=== PATIENT | female | born 1950 | race Caucasian/White ===

== ENCOUNTER 2017-09-12 05:41 | Day surgery (SDC) | payer MEDICARE, OTHER ==
[2017-09-09 11:02] VITALS: BMI 26.6
[2017-09-12] MEDS ORDERED: CEFAZOLIN/Water 2 GM/20 ML SYRINGE ONE (06:26)
[2017-09-12] MEDS ORDERED: Bupivacaine/Epinephrine 0.25% 30 ML VIAL ONE (06:36)
[2017-09-12] MEDS ORDERED: Fentanyl 100 MCG/2 ML VIAL ONE (06:57)
[2017-09-12] MEDS ORDERED: Propofol 500 MG/50 ML VIAL ONE (06:57)
[2017-09-12] MEDS ORDERED: Midazolam HCl 2 mg/2 ml Vial ONE (07:44)
[2017-09-12] MEDS ORDERED: Propofol 200 MG/20 ML VIAL ONE (08:38)
[2017-09-12] MEDS ORDERED: HYDROcodone/Acetaminophen 5/325 mg Tablet ONE (10:08)
--- NOTE | 2017-09-12 12:03 | OP ---
PREOPERATIVE DIAGNOSIS: Advanced breast cancer. SURGEON: Antione Hong M.D. PROCEDURE PERFORMED: Left subclavian MediPort placement. INDICATIONS: A 67-year-old female who has advanced right breast cancer, needs adjuvant chemotherapy . FINDINGS: Left subclavian vein placement. DESCRIPTION OF PROCEDURE: After informed consent was obtained, the patient was taken to the operati ng room and given general mask anesthesia, placed in the Trendelenburg position. Her chest and neck were prepped and draped in the usual fashion. Local anesthesia infiltrated subcutaneously and deep . An introducer needle was inserted in left subclavian with good backflow of venous blood. J-wire threaded easily. Fluoroscopy was used showed good placement of the wire in the superior vena cava. Skin and subcutaneous anesthetized with local anesthesia and a transverse chest wall incision was p erformed. The subcu divided sharply and a pocket was created sharply on pectoralis fascia with elec trocautery. A tunneling device was used to connect the two incisions. The catheter brought through the tunnel. The catheter was then attached to the MediPort and the system flushed with heparinized saline. The MediPort was sutured to the pectoralis fascia with interrupted 2-0 Prolene suture. Th e catheter was cut to size. The peel-away introducer inserted over the wire. The wire removed. Th e catheter inserted through the peel-away introducer and then the peel-away introducer removed. Flu oroscopy again used showed good placement of the catheter in the superior vena cava. The system was accessed with the Delong needle. Good backflow of venous blood, flushed with heparinized saline. S ubcutaneous reapproximated with interrupted 3-0 Vicryl. Skin closed with a running subcuticular 4-0 Rapide. Dermabond applied. The system was accessed with the Delong needle and left accessed for fu ture use, again it was aspirated and flushed with heparinized saline. Sterile bandage applied. The patient tolerated the procedure well and transferred to recovery in good condition. Sponge and nee dle count verified correct x2.
--- NOTE | 2017-09-12 12:21 | RAD ---
CHEST SEMIUPRIGHT PORTABLE: HISTORY: A 67-year-old female status post Mediport placement. FINDINGS: There is a left subclavian catheter and Mediport injection port in place. Heart size is within norm al limits. There is no pneumothorax or pleural effusion. IMPRESSION: Left subclavian catheter and Mediport placement without pneumothorax or other complication. POS: [facility]
== END 2017-09-12 11:40 | disposition home or self-care (01) ==
LOC: SDC 05:41
PROVIDERS: ATTEND Surgery
PROC: 05H633Z Insertion of Infusion Device into Left Subclavian Vein, Percutaneous Approach (ICD-10-PCS; principal; 2017-09-12)
DX: C50.911 Malignant neoplasm of unspecified site of right female breast (principal); Z88.2 Allergy status to sulfonamides; Z88.1 Allergy status to other antibiotic agents; Z98.890 Other specified postprocedural states; Z82.49 Family history of ischemic heart disease and other diseases of the circulatory system
CPT/HCPCS: 36561; 71010; C1788; J1642; J2250; J2704; J3010

== ENCOUNTER 2017-09-15 12:58 | Outpatient (CLI) | payer MEDICARE, OTHER ==
[~2017-09-15 12:58] MED LIST: Gadobenate Dimeglumine 529 MG/1 ML (20ML VIAL) ONE
--- NOTE | 2017-09-15 17:07 | MRI ---
MRI BRAIN WITH AND WITHOUT CONTRAST: Clinical history: Malignant neoplasm of breast. FINDINGS: Ventricular system is normal in size. No midline shift. There are abnormal enhancing intraaxial 1 cm foci involving the superior aspect of the left temporal lobe involving the anterior right parietal lobe. There are punctate areas of increased signal intensity at each anterior pole of the temporal l obes which may be artifactual. There is also punctate hyperintensity of the mid to posterior right t emporal lobe, too small to definitely characterize, identified on sagittal imaging although not conf irmed on axial imaging. This could relate to an early tiny metastases, although 1-2 mm size range do es limit assessment. Continued imaging surveillance would prove useful. There is scattered white mat ter chronic microvascular ischemic disease and superimposed edema from the above described intraaxia l lesions. No hemorrhage. IMPRESSION: Intracranial metastatic lesions as above. Dominant lesion involves the mid aspect of the left tempor al lobe superiorly, at 1 cm in diameter. POS: [facility]
== END 2017-09-15 12:59 | disposition home or self-care (01) ==
LOC: SCSMRI 12:58
PROVIDERS: ATTEND Internal Medicine Hematology & Oncology
DX: C50.111 Malignant neoplasm of central portion of right female breast (principal); C79.31 Secondary malignant neoplasm of brain
CPT/HCPCS: 70553; A9579

== ENCOUNTER 2017-09-24 09:40 | Outpatient (CLI) | payer MEDICARE, OTHER ==
--- NOTE | 2017-09-24 13:11 | CT ---
CT CHEST AND ABDOMEN AND PELVIS: DATE: 09/24/17. COMPARISON: None. HISTORY: Right breast cancer diagnosed 2 weeks ago, chemotherapy began 09/29/17. TECHNIQUE: Serial axial CT imaging is obtained at 5 mm intervals from the thoracic inlet through the pubic symph ysis with intravenous and oral contrast. Coronal reformatted imaging obtained. FINDINGS: There is a large lobulated superior breast mass on the right extending to the skin surface anteriorly and abutting the pectoralis musculature posteriorly, measuring 6.8 x 6.3 cm. Additional irregular h yperdense masses are noted within the breast parenchyma on the right including a lesion on axial imag e 23 laterally measuring 1.9 cm and a probable lesion on image 28 measuring in the 1.9 cm range. Ded icated breast imaging via mammography/ultrasound and MRI would be required for full assessment. There is a mass insinuating between the pectoralis musculature on the right on image 16 measuring 2.9 x 1.6 cm, also related to right breast malignancy. On image 22, there is a small centrally hypodense lesion measuring 7 mm medial to the internal mammar y vasculature on the right suggesting a metastatic internal mammary node on the right. There are irregular centrally hypodense masses in the axilla on the right, consistent with prominent right axillary metastatic adenopathy, measuring up to 4.4 cm. At least 4 such abnormal right axillar y lymph nodes are present. There is a left-sided Port-A-Cath. No discrete adenopathy is seen in the left axillary region. No m ediastinal or hilar adenopathy is seen. There is atherosclerotic calcification in the aorta arch and the descending thoracic aorta. There is no pneumothorax evident on either side. No discrete pulmonary nodule/mass lesion identified within the lung parenchyma on either side. Osseous structures of the chest demonstrate no discrete lytic or blastic bone lesion. CT of the abdomen and pelvis demonstrates no free intraperitoneal air or fluid. There are extensive irregular hypoenhancing mass lesions throughout the right and the left lobe of th e liver, most consistent with extensive intrahepatic necrotic metastatic disease. A lesion within th e left lobe measures up to 12 cm in transverse dimension and the lesion within the inferior lateral r ight lower lobe measures up to 9 cm. The spleen, pancreas, and adrenal glands appear grossly unremar kable. The gallbladder is contracted and contains 2 calculi. Trace nonspecific free fluid is seen in the pelvic cul-de-sac. The uterus is lobulated and contains masses with coarse calcification suggesting a fibroid uterus. There is diverticulosis of the descending colon. No evidence for diverticulitis. No evidence for guilherme wel obstruction. There is trace free fluid in the right paracolic gutter on axial image 91. Portions of the peripheral hepatic contour are irregular/retracted, likely on the basis of metastatic lesions throughout the hepatic parenchyma. There is fluid density along the anterior aspect of the left lobe of the liver, best seen on image 45 , which may signify minimal fluid adjacent to the liver or small volume subcapsular fluid. There is minimal fluid and stranding anterior to the inferior aspect of the right lobe of the liver laterally on image 71. There is extensive atherosclerotic calcification of the abdominal aorta and its branches. No pelvic adenopathy. No mesenteric or retroperitoneal adenopathy. No discrete lytic or blastic bone lesion identified within the osseous structures of the abdomen or p silvia. IMPRESSION: 1. Large mass in the right breast consistent with breast cancer. Additional right breast lesions ar e noted, suspicious for multicentric disease. There is evidence of metastatic disease which includes abnormal necrotic-appearing intramammary node on right, multiple irregular necrotic enlarged right a xillary nodes, and extensive hepatic metastatic disease. There is small volume fluid noted anterior to the right lobe of the liver, the left lobe of the liver, and the right paracolic gutter, and withi n the pelvis. Given the degree of metastatic disease seen on this examination, this could potentiall y represent early changes of peritoneal carcinomatosis. Thus, close followup imaging is suggested. 2. Cholelithiasis. Results called to Dr. Britt at approximately 11:00 a.m. 09/24/17. CODE CR POS: [facility]
--- NOTE | 2017-09-24 15:15 | NM ---
EXAM: WHOLE BODY BONE SCAN: HISTORY: Malignant/metastatic right breast cancer. COMPARISON: None. TECHNIQUE: The patient was administered 31.40 mCi of Technetium 99 MDP intravenously. After appropriate delay, whole body imaging is performed. FINDINGS: There is physiologic distribution of radiotracer. There is uptake in both shoulders and the right wr ist due to degenerative change. There is no scintigraphic evidence of osseous metastases. IMPRESSION: No scintigraphic evidence of osseous metastasis. POS: [facility]
== END 2017-09-24 09:41 | disposition home or self-care (01) ==
LOC: CT 09:40
PROVIDERS: ATTEND Internal Medicine Hematology & Oncology
DX: C79.31 Secondary malignant neoplasm of brain (principal); C50.111 Malignant neoplasm of central portion of right female breast; C78.7 Secondary malignant neoplasm of liver and intrahepatic bile duct; K80.20 Calculus of gallbladder without cholecystitis without obstruction; I88.9 Nonspecific lymphadenitis, unspecified
CPT/HCPCS: 71260; 74177; 78306; A9503

== ENCOUNTER 2017-11-19 13:12 | Outpatient (CLI) | payer MEDICARE, OTHER ==
--- NOTE | 2017-11-19 15:00 | MRI ---
BRAIN MRI WITH AND WITHOUT CONTRAST: Indication: History of breast malignancy, metastatic disease, and prior radiation therapy. Comparison: 09-15-17 FINDINGS: There has been interval involution of prior metastatic lesions with small foci of residual hyperinten sity located within the mid left temporal lobe, and at the anterior right parietal cortex. No evidenc e of acute infarction or intracranial hemorrhage. Ventricular size is stable. There are multifocal si gnal abnormalities of the brain parenchyma bilaterally indicating mild to moderate degree of scattere d gliosis. Skull base flow voids are preserved. [place] intraocular lens is absent. IMPRESSION: Interval decrease in size of metastatic lesions with mild residual T1 hyperintensity on post contrast imaging within the mid left temporal lobe and anterior right parietal lobe. POS: [facility]
[2017-11-19] MEDS ORDERED: Gadobenate Dimeglumine 529 MG/1 ML (20ML VIAL) ONE (16:05)
== END 2017-11-19 13:13 | disposition home or self-care (01) ==
LOC: MRI 13:12
PROVIDERS: ATTEND Radiology Radiation Oncology
DX: C79.31 Secondary malignant neoplasm of brain (principal)
CPT/HCPCS: 70553; A9579

== ENCOUNTER 2017-11-21 09:36 | Outpatient (CLI) | payer MEDICARE, OTHER ==
--- NOTE | 2017-11-21 12:26 | CT ---
CT THORAX WITH IV THORAX CT ABDOMEN AND PELVIS WITH IV CONTRAST: DATE: 11/21/17. HISTORY: Patient with breast cancer and metastatic disease to the liver. The patient is currently on chemothe rapy treatment. COMPARISON: 09/24/17. FINDINGS: There has been interval decrease in the large heterogeneous lobulated mass in the medial aspect of th e right breast. This large lobulated mass previously measured 6.8 cm transverse x 6.3 cm AP and now measures 3.4 cm transverse x 2.2 cm AP. There is associated skin thickening anterior to this mass. The additional masses in the right breast and right axillary region as well as in a subpectoral locat ion which may have been related to enlarged lymph nodes or subtle breast lesions are not well seen on this examination. No enlarged axillary lymph nodes are seen on the right on today's examination. There is no mediastinal or hilar lymphadenopathy. A left subclavian MediPort catheter remains in place. No pulmonary nodule or mass is seen in the lungs bilaterally. Vascular calcifications are seen in the thoracic aorta and involving the coronary arteries. There is a tiny pericardial effusion. CT ABDOMEN AND PELVIS: Again noted are multiple hypodense hepatic masses, but the overall volume of these masses related to metastatic lesions in the liver have decreased in size. Large metastatic hypodense lesion in the lef t hepatic lobe previously measured 11.8 cm transverse x 9.1 cm AP and now measures 10.8 cm transverse x 6.5 cm AP with the previously measured mass in the right hepatic lobe previously measuring 8.7 cm in maximal AP dimensions and now measures approximately 6.3 cm. Additional hypodense lesions are see n in the liver also smaller in size. No new hepatic lesions are seen. The spleen, pancreas, bilateral adrenal glands, kidneys, opacified small bowel, and urinary bladder h ave a normal CT appearance. Again noted are calcified uterine fibroids with lobulated appearance of the uterus. Colonic diverticulosis is present. Vascular calcifications are seen in the abdominal aorta and iliac arteries. No lymphadenopathy is visualized in the abdomen or pelvis. No lytic or sclerotic osseous lesions are identified. IMPRESSION: 1. Interval decrease in size of the large right breast mass as well as interval decrease in size and essentially resolution of the previously noted satellite masses in the right breast and resolution o f the right axillary and subpectoral lymphadenopathy. 2. Interval decrease in volume of the multiple metastatic hypodense lesions seen throughout each lob e of the liver. 3. No evidence of lymphadenopathy within the chest, abdomen, or pelvis. 4. Cholelithiasis. 5. Colonic diverticulosis. 6. Uterine fibroids. 7. Previously seen fluid in the abdomen and pelvis has resolved. POS: [facility]
[2017-11-21] MEDS ORDERED: Iopamidol 370 76% 100 ML VIAL ONE (16:40)
== END 2017-11-21 09:37 | disposition home or self-care (01) ==
LOC: CT 09:36
PROVIDERS: ATTEND Internal Medicine Hematology & Oncology
DX: C50.919 Malignant neoplasm of unspecified site of unspecified female breast (principal); K80.20 Calculus of gallbladder without cholecystitis without obstruction; K57.30 Diverticulosis of large intestine without perforation or abscess without bleeding; D25.9 Leiomyoma of uterus, unspecified; K76.9 Liver disease, unspecified
CPT/HCPCS: 36415; 71260; 74177; 82565

== ENCOUNTER 2018-01-20 09:12 | Outpatient (CLI) | payer MEDICARE, OTHER | END 2018-01-20 09:13 | disposition home or self-care (01) | LOC: BICULT 09:12 | PROVIDERS: ATTEND Internal Medicine Hematology & Oncology | DX: C50.111 Malignant neoplasm of central portion of right female breast (principal); N63.20 Unspecified lump in the left breast, unspecified quadrant; T82.868D Thrombosis due to vascular prosthetic devices, implants and grafts, subsequent encounter | CPT/HCPCS: 76641; 78815; A9552 ==

== ENCOUNTER 2018-01-22 15:00 | Inpatient (IN) | payer MEDICARE, OTHER ==
[2018-01-22 15:22] VITALS: BMI 26.6
[2018-01-29] MEDS ORDERED: CEFAZOLIN/Water 2 GM/20 ML SYRINGE ONE (07:59)
[2018-01-29] MEDS ORDERED: Midazolam HCl 2 mg/2 ml Vial ONE (09:16)
[2018-01-29] MEDS ORDERED: HYDROmorphone 0.5 MG/0.5 ML SYRINGE ONE ×3 (09:17→12:35)
[2018-01-29] MEDS ORDERED: Fentanyl 100 MCG/2 ML VIAL ONE (09:17)
[2018-01-29] MEDS ORDERED: Promethazine HCl 25 MG/ML VIAL SLOW IVP PRN (11:07)
[2018-01-29] MEDS ORDERED: Ondansetron HCl/PF 4 MG/2 ML Vial IVP PRN ×2 (11:07→11:39)
[2018-01-29] MEDS ORDERED: Promethazine HCl 25 MG/ML VIAL IM PRN ×2 (11:07→11:39)
[2018-01-29] MEDS ORDERED: Meperidine HCl/PF 25 MG/ML VIAL SLOW IVP PRN (11:07)
[2018-01-29] MEDS ORDERED: Dextrose 50% Abboject 50 ML SYRINGE SLOW IVP PRN (11:39)
[2018-01-29] MEDS ORDERED: Dextrose 5% in Water 1,000 ML IV PRN (11:39)
[2018-01-29] MEDS ORDERED: HYDROcodone/Acetaminophen 10/325 mg Tablet PO PRN (11:39)
[2018-01-29] MEDS ORDERED: hydrALAZINE 20 MG/ML VIAL SLOW IVP PRN (11:39)
[2018-01-29] MEDS ORDERED: Morphine 4 MG/ML VIAL SLOW IVP PRN ×2 (11:39)
[2018-01-29] MEDS ORDERED: Morphine 4 MG/ML VIAL ONE (12:18)
[2018-01-29] MEDS: D5 1/2 NS w/20 mEq KCL 1,000 ML IV SCH (13:32)
[2018-01-29] MEDS ORDERED: ePHEDrine/0.9% NaCl/PF SYRINGE 50 mg/10 ml ONE (13:45)
[2018-01-29] MEDS ORDERED: Propofol 200 MG/20 ML VIAL ONE (13:45)
[2018-01-29] MEDS ORDERED: Ondansetron HCl/PF 4 MG/2 ML Vial ONE (13:45)
[2018-01-29] MEDS ORDERED: Glycopyrrolate 0.2 MG/ML 5 ML SYRINGE ONE (13:45)
[2018-01-29] MEDS ORDERED: Lidocaine 1% PF 5 ML VIAL ONE (13:45)
[2018-01-29] MEDS ORDERED: Ketorolac Tromethamine 30 MG/ML VIAL ONE (13:45)
[2018-01-29] MEDS ORDERED: Dexamethasone 20 MG/5 ML VIAL ONE (13:45)
--- NOTE | 2018-01-29 14:27 | OP ---
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 Also, she has several left breast masses on mammogram PROCEDURE PERFORMED: Bilateral total mastectomy. INDICATIONS: This is a 67-year-old female who had an advanced eroding right breast cancer that was t reated with neoadjuvant therapy, both radiation and chemo with good response. She did have brain met s that also had good response. FINDINGS: There was quite a bit of radiation change on the right side. I had to adjust the incision on the right side in order to get the tumor area as well as the nipple areola. PROCEDURE IN DETAIL: After informed consent was obtained, the patient was taken to the operating lakhwinder m, given general endotracheal anesthesia, placed in the supine position. Started with the left side. An elliptical incision was performed sharply using the plasma blade. A plane was developed between subcutaneous tissue and breast tissue all the way to the clavicle. I had to dissect out the MediPor t leaving it in place, then inferiorly developed same plane between subcutaneous tissue and breast ti ssue all the way down to the rectus muscle. Then the specimen was taken off the pectoralis muscle to include the pectoralis fascia with the plasma blade. It was marked with a suture superior, sent to pathology for further analysis. A lymph node which was a little larger than anticipated was found. This was also dissected out and sent with the specimen from the left axilla. Hemostasis achieved uti lizing the plasma blade as well as 3-0 Vicryl ties. The wound was thoroughly irrigated. Irrigation fluid removed. The subcutaneous reapproximated with interrupted 3-0 Vicryl. Two drains were placed and brought out through separate stab wounds. The skin closed with a running subcuticular 4-0 Rapide . Steri-Strips applied. I then moved to the right side. An oblique elliptical incision had to be p erformed in order to get the tumor bed as well as the nipple areola. Subcu divided sharply and a katlin ne developed utilizing the plasma blade superior to the level of clavicle, inferior to the level of t he rectus, medially to the sternum, and laterally to the latissimus. Then this was taken off the pec toralis to include the fascia with the plasma blade. Hemostasis achieved with the plasma blade as we ll as interrupted 3-0 Vicryl sutures. The wound thoroughly irrigated. Two drains were placed and rodriguez bcu reapproximated with interrupted 3-0 Vicryl. Skin closed with a running subcuticular 4-0 Rapide. Steri-Strips applied. Sterile bandage applied. The patient tolerated the procedure well and was tr ansferred to recovery in good condition. Sponge and needle count verified correct x2.
[2018-01-29] MEDS: Famotidine 20 MG TAB PO SCH (22:37)
[2018-01-29] MEDS: CEFAZOLIN/Water 2 GM/20 ML SYRINGE SLOW IVP SCH (22:38)
[2018-01-30 05:39] LABS: #Lymphocytes 1.6 thou/uL (1.20-3.40); #Monocytes 0.7 thou/uL (0.11-0.59); #Neutrophils 10.4 thou/uL (1.40-6.50); %Basophils 0.2 % (0.0-1.0); %Eosinophils 0.2 % (0.0-10.0); %Lymphocytes 12.3 % (21.0-51.0); %Monocytes 5.7 % (0.0-10.0); %Neutrophils 81.7 % (42.0-75.0); Hemoglobin 8.3 g/dL (12.0-16.0); Mean Corpuscular HGB CONC 32.3 g/dL (32.0-36.0); Mean Corpuscular Hemoglobin 28.5 pg (27.0-31.0); Mean Corpuscular Volume 88.4 fl (81.0-99.0); Mean Platelet Volume 8.1 fL (7.4-10.4); Platelet Count 251 thou/uL (130-400); RBC Distribution Width 15.4 % (11.5-14.5); Red Blood Cell (RBC) Count 2.92 mill/uL (4.20-5.40); White Blood Cell (WBC) Count 12.7 thou/uL (4.8-10.8)
[2018-01-30] MEDS: HYDROcodone/Acetaminophen 10/325 mg Tablet PO PRN ×2 (05:51→12:23)
[2018-01-30] MEDS: CEFAZOLIN/Water 2 GM/20 ML SYRINGE SLOW IVP SCH ×2 (05:52→13:42)
[2018-01-30] MEDS: D5 1/2 NS w/20 mEq KCL 1,000 ML IV SCH (05:52)
[2018-01-30 06:06] LABS: Anion Gap 10 mmol/L (10-20); BUN (Urea Nitrogen) 12 mg/dL (9.8-20.1); Calc. Creatinine Clearance 89 mL/min (70-130); Calcium 8.4 mg/dL (7.8-10.44); Carbon Dioxide 23 mmol/L (23-31); Chloride 107 mmol/L (98-107); Estimated GFR-MDRD 82; Glucose 120 mg/dL (80-115)
[2018-01-30 06:16] LABS: Sodium 136 mmol/L (136-145)
[2018-01-30] MEDS ORDERED: Enoxaparin Sodium 40 MG/0.4 ML SYRINGE SC SCH (09:00)
[2018-01-30 09:09] LABS: #Eosinphils 0.1 thou/uL (0.0-0.7); #Monocytes 0.6 thou/uL (0.11-0.59); #Neutrophils 9.9 thou/uL (1.40-6.50); %Basophils 0.2 % (0.0-1.0); %Eosinophils 0.4 % (0.0-10.0); %Lymphocytes 15.6 % (21.0-51.0); %Monocytes 4.9 % (0.0-10.0); %Neutrophils 78.8 % (42.0-75.0); Hemoglobin 8.4 g/dL (12.0-16.0); Mean Corpuscular HGB CONC 33.2 g/dL (32.0-36.0); Mean Corpuscular Hemoglobin 29.2 pg (27.0-31.0); Mean Corpuscular Volume 88.1 fl (81.0-99.0); Mean Platelet Volume 8.2 fL (7.4-10.4); Platelet Count 240 thou/uL (130-400); RBC Distribution Width 15.4 % (11.5-14.5); Red Blood Cell (RBC) Count 2.87 mill/uL (4.20-5.40); White Blood Cell (WBC) Count 12.5 thou/uL (4.8-10.8)
[2018-01-30] MEDS: Famotidine 20 MG TAB PO SCH (09:23)
[2018-01-30 11:40] VITALS: BP 147/74; TEMP 98.9
== END 2018-01-30 14:38 | disposition home or self-care (01) | DRG 582 ==
LOC: SURG A 01-29 06:49
PROVIDERS: ADMIT Surgery; ATTEND Surgery
PROC: 0HTV0ZZ Resection of Bilateral Breast, Open Approach (ICD-10-PCS; principal; 2018-01-29)
DX: C50.919 Malignant neoplasm of unspecified site of unspecified female breast (principal); C79.31 Secondary malignant neoplasm of brain; C50.111 Malignant neoplasm of central portion of right female breast; C50.911 Malignant neoplasm of unspecified site of right female breast; N63.0 Unspecified lump in unspecified breast; I10 Essential (primary) hypertension; I08.1 Rheumatic disorders of both mitral and tricuspid valves; Z79.899 Other long term (current) drug therapy
CPT/HCPCS: 36415; 80048; 80053; 82248; 83615; 84100; 84550; 85025; 93306; J0131; J0360; J1100; J1170; J1885; J2001; J2250; J2270; J2405; J2550; J2704; J3010

== ENCOUNTER 2018-01-22 15:02 | Outpatient (CLI) | payer MEDICARE, OTHER ==
[2018-01-22 16:55] LABS: #Basophils 0.1 thou/uL (0.0-0.2); #Eosinphils 0.2 thou/uL (0.0-0.7); #Lymphocytes 1.9 thou/uL (1.20-3.40); #Monocytes 0.9 thou/uL (0.11-0.59); %Basophils 0.9 % (0.0-1.0); %Eosinophils 2.1 % (0.0-10.0); %Monocytes 10.7 % (0.0-10.0); %Neutrophils 62.3 % (42.0-75.0); Hemoglobin 11.5 g/dL (12.0-16.0); Mean Corpuscular Hemoglobin 28.8 pg (27.0-31.0); Mean Corpuscular Volume 87.4 fl (81.0-99.0); Mean Platelet Volume 8.3 fL (7.4-10.4); Platelet Count 287 thou/uL (130-400); RBC Distribution Width 15.2 % (11.5-14.5)
[2018-01-22 17:16] LABS: ALT (SGPT) 16 U/L (8-55); AST (SGOT) 20 U/L (5-34); Albumin 4.1 g/dL (3.4-4.8); Alkaline Phosphatase 82 U/L (40-150); Anion Gap 16 mmol/L (10-20); BUN (Urea Nitrogen) 13 mg/dL (9.8-20.1); Bilirubin, Total 0.4 mg/dL (0.2-1.2); Calc. Creatinine Clearance 0 mL/min (70-130); Calcium 9.5 mg/dL (7.8-10.44); Carbon Dioxide 20 mmol/L (23-31); Chloride 107 mmol/L (98-107); Estimated GFR-MDRD 81; Globulin 3.1 g/dL (2.4-3.5); Glucose 76 mg/dL (80-115); Potassium 3.5 mmol/L (3.5-5.1); Protein, Total 7.2 g/dL (6.0-8.3); Sodium 139 mmol/L (136-145)
--- NOTE | 2018-01-24 18:36 | EKG ---
Test Reason : Blood Pressure : / mmHG Vent. Rate : 059 BPM Atrial Rate : 059 BPM P-R Int : 158 ms QRS Dur : 094 ms QT Int : 420 ms P-R-T Axes : 046 018 046 degrees QTc Int : 415 ms Sinus bradycardia with sinus arrhythmia Incomplete right bundle branch block Cannot rule out Anterior infarct (cited on or before 09-SEP-2017) Abnormal ECG When compared with ECG of 09-SEP-2017 11:09, Vent. rate has decreased BY 29 BPM Incomplete right bundle branch block is now Present Criteria for Inferior infarct are no longer Present Questionable change in initial forces of Anteroseptal leads Confirmed by JESSE HILL, DR. Martinez ([id number]) on 01/24/2018 6:35:52 PM Referred By: MATEO Confirmed By:DR. Michelle MOLINA MD
== END 2018-01-22 15:03 | disposition home or self-care (01) ==
LOC: LABBT 15:02
PROVIDERS: ATTEND Surgery
DX: Z01.818 Encounter for other preprocedural examination (principal); C50.911 Malignant neoplasm of unspecified site of right female breast; N63.20 Unspecified lump in the left breast, unspecified quadrant; I49.9 Cardiac arrhythmia, unspecified; I45.10 Unspecified right bundle-branch block; R94.31 Abnormal electrocardiogram [ECG] [EKG]
CPT/HCPCS: 80053; 85025; 93005; 93010

== ENCOUNTER 2018-01-27 13:01 | Outpatient (CLI) | payer MEDICARE, OTHER | END 2018-01-27 13:02 | disposition home or self-care (01) | LOC: ULT 13:01 | PROVIDERS: ATTEND Internal Medicine Hematology & Oncology | DX: Z51.11 Encounter for antineoplastic chemotherapy (principal); C50.111 Malignant neoplasm of central portion of right female breast; I08.1 Rheumatic disorders of both mitral and tricuspid valves; Z79.899 Other long term (current) drug therapy | CPT/HCPCS: 93306 ==

== ENCOUNTER 2018-02-19 09:18 | Outpatient (CLI) | payer MEDICARE, OTHER ==
[2018-02-19] MEDS ORDERED: Gadobenate Dimeglumine 529 MG/1 ML (20ML VIAL) ONE (11:40)
--- NOTE | 2018-02-19 12:57 | MRI ---
BRAIN MRI WITH AND WITHOUT CONTRAST: COMPARISON: 11/19/17. HISTORY: Status post radial surgery. Breast cancer with brain metastases. TECHNIQUE: A brain MRI is performed with and without intravenous Gadolinium administration. Multisequential, mu ltiplanar imaging is performed. FINDINGS: No hemorrhage on the axial gradient echo sequence. Central arterial flow voids are maintained. Absent restricted diffusion. Redemonstration of multifocal T2 and FLAIR hyperintensities. The overall degree of distribution has not changed. Stable configuration of the ventricular system. Cortical gurrola-white matter differentia tion is preserved. Adequate aeration of the mastoid air cells. There intimal development of enhancing foci in the left frontal lobe measuring 2-3 mm. Interval development of an enhancing focus in the left centrum semiov margarita, measuring 2 mm. Interval development of enhancing focus in the right centrum semiovale measurin g 2 mm. Interval increase in size of an enhancing focus involving the right frontal lobe, along the olfactory gyrus measuring 4 mm. The lesion is much better defined on the current examination. Inter eric development of a 3 mm enhancing focus in the right temporal lobe. . New lesion in medial left oc cipital lobe measuring approximately 2 mm is also noted. Interval development of enhancing foci in the left and right cerebellar hemispheres. These foci jennifer ure 2-3 mm. IMPRESSION: Interval progression of disease. Multifocal new subcentimeter enhancing foci are noted in the infrat entorial and supratentorial brain. POS: [facility]
== END 2018-02-19 09:19 | disposition home or self-care (01) ==
LOC: MRI 09:18
PROVIDERS: ATTEND Radiology Radiation Oncology
DX: C50.919 Malignant neoplasm of unspecified site of unspecified female breast (principal); C79.31 Secondary malignant neoplasm of brain
CPT/HCPCS: 70553; A9579

== ENCOUNTER 2018-05-13 10:15 | Outpatient (CLI) | payer MEDICARE, OTHER ==
[2018-05-13] MEDS ORDERED: Gadobenate Dimeglumine 529 MG/1 ML (20ML VIAL) ONE (13:21)
--- NOTE | 2018-05-13 14:15 | MRI ---
PRE AND POST CONTRAST ENHANCED MRI BRAIN: 05/13/2018 HISTORY: The patient has a history of breast cancer with brain metastases. COMPARISON: 02/19/2018 TECHNIQUE: Multiplanar, multisequence pre and post contrast enhanced MRI brain obtained. FINDINGS: Images demonstrate no significant evidence of diffusion restriction. Deep white matter ischemic change is seen. No evidence of abnormally enhancing intracranial masses or lesions seen. Numerous supratentorial and infratentorial multiple bilateral brain metastatic lesions are no longer visible. No evidence of ab normal areas of intracranial enhancement seen. No other acute intracranial masses or lesions seen. There does appear to be newly developed fluid in the left mastoid air cells. This was not present on the patient's previous comparison exam. IMPRESSION: 1. The extensive metastatic disease noted previously is no longer visible. 2. Multiple subcentimeter brain metastatic lesions no longer visible on MRI. 3. Newly developed area of fluid in the left mastoid air cells. POS: [facility]
== END 2018-05-13 10:16 | disposition home or self-care (01) ==
LOC: BICMRI 10:15 → MRI 10:16
PROVIDERS: ATTEND Radiology Radiation Oncology
DX: C79.31 Secondary malignant neoplasm of brain (principal); C50.919 Malignant neoplasm of unspecified site of unspecified female breast; H74.8X2 Other specified disorders of left middle ear and mastoid
CPT/HCPCS: 70553; A9579

== ENCOUNTER 2018-05-25 10:10 | Outpatient (CLI) | payer MEDICARE, OTHER | END 2018-05-25 10:11 | disposition home or self-care (01) | LOC: ULT 10:10 | PROVIDERS: ATTEND Internal Medicine Hematology & Oncology | DX: C50.919 Malignant neoplasm of unspecified site of unspecified female breast (principal); I08.1 Rheumatic disorders of both mitral and tricuspid valves; Z79.899 Other long term (current) drug therapy | CPT/HCPCS: 93306 ==

== ENCOUNTER 2018-06-19 09:55 | Outpatient (CLI) | payer MEDICARE, OTHER ==
--- NOTE | 2018-06-19 13:05 | PET ---
PET CT: HISTORY: 68-year-old female with right breast cancer with liver mets. Last chemotherapy was 06/01/18. TECHNIQUE: PET scanning with CT attenuation correction was performed from the base of the brain through the prox imal thighs following the intravenous administration of 11 mCi [id number]. Imaging was performed after a n uptake interval of 48 minutes. COMPARISON: PET CT of 01/20/18. FINDINGS: Multiple new hypermetabolic lesions are seen in the liver with a maximum SUV of 11. No anjelica hypermetabolism is seen in the neck, chest, abdomen, pelvis, or inguinal regions. No hyperme tabolic pulmonary nodules, adrenal, or skeletal lesions are seen. There is physiologic activity in the GI and tracts, and the visualized portions of the brain. The CT scan used for attenuation correction demonstrates no evidence of pleural effusions or ascites. Cholelithiasis and calcified uterine fibroids are again seen. IMPRESSION: Interval development of hepatic metastases since 01/20/18. POS: [facility]
== END 2018-06-19 09:56 | disposition home or self-care (01) ==
LOC: PET 09:55
PROVIDERS: ATTEND Internal Medicine Hematology & Oncology
DX: C50.919 Malignant neoplasm of unspecified site of unspecified female breast (principal); C78.7 Secondary malignant neoplasm of liver and intrahepatic bile duct; C79.31 Secondary malignant neoplasm of brain
CPT/HCPCS: 78815; A9552

== ENCOUNTER 2018-06-26 08:00 | Outpatient (CLI) | payer MEDICARE, OTHER ==
--- NOTE | 2018-06-26 10:43 | MRI ---
MRI ABDOMEN WITH AND WITHOUT CONTRAST: HISTORY: New hepatic metastatic disease seen on a recent PET CT. COMPARISON: PET CT from 06/19/2018. Multiple prior chest, abdomen, and pelvis CT examinations. PET CT from 01/20/2018. FINDINGS: Corresponding to the recent PET CT are numerous hepatic metastases. This surrounds an area of centra l necrosis between the right and left lobes of the liver, which correspond to areas of necrotic tumor . These areas of central necrosis were photopenic on the prior examinations and likely did not harbo r an active tumor. There is an index lesion of hepatic segment 3, abutting the capsule, measuring up to 3.7 cm in size, on axial image 20. The index lesion of hepatic segment 5 measures up to 3.1 cm in size, on axial antonia ge 25. These masses have enhancement with diffusion restriction. The portal vein has patent antegrade flow. No hydronephrosis. No significant pericardial effusion. No retroperitoneal or periaortic adenopathy. Periaortic contou r is normal. No significant intrahepatic or extrahepatic biliary dilatation. The pancreatic duct is normal. Background marrow signal is normal. IMPRESSION: 1. Extensive hepatic metastatic disease surrounding areas of necrosis. This suggests tumor recurren ce around the areas of necrotic treated tumor. 2. Index lesions, as above. This corresponds to recent PET CT findings. POS: [facility]
[2018-06-26] MEDS ORDERED: Gadobenate Dimeglumine 529 MG/1 ML (20ML VIAL) ONE (13:38)
== END 2018-06-26 08:01 | disposition home or self-care (01) ==
LOC: MRI 08:00
PROVIDERS: ATTEND Internal Medicine Hematology & Oncology
DX: K76.9 Liver disease, unspecified (principal); C50.111 Malignant neoplasm of central portion of right female breast; C22.9 Malignant neoplasm of liver, not specified as primary or secondary
CPT/HCPCS: 74183; A9579

== ENCOUNTER 2018-08-19 11:05 | Outpatient (CLI) | payer MEDICARE, OTHER ==
--- NOTE | 2018-08-19 13:58 | MRI ---
BRAIN MRI WITH AND WITHOUT CONTRAST: INDICATIONS: Breast cancer with history of metastatic disease. COMPARISON: 05/13/2018 FINDINGS: There is age appropriate size of the ventricular system. No acute territorial infarction, mass effec t, or midline shift. There is a punctate 5mm focus of enhancement within the left cerebellar hemisph ere. Skull base flow voids are maintained. There is left mastoid effusion. Absence of [place] intra ocular lenses is demonstrate. There has been marked progression of bilateral cerebral hemisphere white matter signal abnormality. IMPRESSION: 1. Punctate focus of enhancement within the left cerebellar hemisphere. New metastatic lesion. 2. 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 POS: [facility]
== END 2018-08-19 11:06 | disposition home or self-care (01) ==
LOC: MRI 11:05
PROVIDERS: ATTEND Radiology Radiation Oncology
DX: C79.31 Secondary malignant neoplasm of brain (principal); C50.919 Malignant neoplasm of unspecified site of unspecified female breast; G93.49 Other encephalopathy
CPT/HCPCS: 70553

== ENCOUNTER 2018-09-15 11:53 | Outpatient (CLI) | payer MEDICARE, OTHER ==
--- NOTE | 2018-09-16 10:28 | PET ---
PET CT: HISTORY: A 68-year-old female with right breast cancer and liver mets. Last chemotherapy was on 09/08/2018. TECHNIQUE: PET scan with CT attenuation correction was performed from the base of the brain through the proximal thighs following the intravenous administration of 12.3 mCi [id number] in the left antec ubital fossa. Imaging is performed after an uptake interval of 58 minutes. COMPARISON: PET CT dated 06/19/2018. FINDINGS: There has been interval reduction in number of hypermetabolic lesions in the liver with residual hype rmetabolic lesions in the median and lateral segments of the liver with SUVs of 6.2 and 5.5 respectiv vidya. No anjelica hypermetabolism is noted in the neck, chest, abdomen, pelvis, or inguinal regions. No hyper metabolic pulmonary nodules, adrenal, or skeletal lesions are seen. There is physiologic activity in the GI and tracts and the visualized portions of the brain. The CT scan used for attenuation correction demonstrates no evidence of pleural effusions or ascites. Cholelithiasis and calcified uterine fibroids are again seen. The 2.2 cm mass in the left axilla i s stable, and shows no FDG uptake. IMPRESSION: Partial response to therapy with interval improvement since 06/09/2018. POS: [facility]
== END 2018-09-15 11:54 | disposition home or self-care (01) ==
LOC: PET 11:53 → ULT 11:54
PROVIDERS: ATTEND Internal Medicine Hematology & Oncology
DX: Z51.11 Encounter for antineoplastic chemotherapy (principal); C50.911 Malignant neoplasm of unspecified site of right female breast; Z79.899 Other long term (current) drug therapy
CPT/HCPCS: 78815; 93306; A9552

== ENCOUNTER 2018-09-23 11:19 | Outpatient (CLI) | payer MEDICARE, OTHER ==
--- NOTE | 2018-09-23 13:46 | ULT ---
CAROTID ULTRASOUND: HISTORY: Decreased vision (one-half vision) in the right eye. COMPARISON: None. TECHNIQUE: Narvaez-scale, color-flow, Doppler imaging, and spectral wave-form analysis is performed in the carotid and vertebral arteries. FINDINGS: RIGHT CAROTID: No significant atherosclerotic disease. The peak systolic velocity of the common car otid artery is 61.5 cm per second. The peak systolic velocity of the internal carotid artery is 77.2 cm per second. The systolic ICA/CCA ratio is 1.3. LEFT CAROTID: Minimal atherosclerosis of the common carotid artery. Minimal thickness of the common carotid artery, at 0.13 cm. The peak systolic velocity of the common carotid artery is 101 cm per s econd. The peak systolic velocity of the internal carotid artery is 89.6 cm per second. The systoli c ICA/CCA ratio is 0.9. Antegrade flow in both vertebral arteries. IMPRESSION: No sonographic evidence of hemodynamically significant stenosis. POS: [facility]
== END 2018-09-23 11:20 | disposition home or self-care (01) ==
LOC: BICULT 11:19
PROVIDERS: ATTEND Ophthalmology Retina Specialist
DX: H47.011 Ischemic optic neuropathy, right eye (principal)
CPT/HCPCS: 93880

== ENCOUNTER 2018-10-21 09:18 | Outpatient (CLI) | payer MEDICARE, OTHER ==
--- NOTE | 2018-10-21 12:50 | MRI ---
MRI BRAIN: Date: 10/21/18 COMPARISON: 08/19/18. HISTORY: Breast cancer with metastatic disease. TECHNIQUE: Multiplanar, multisequence MR imaging of the brain is provided with and without contrast. FINDINGS: The diffusion-weighted imaging demonstrates no evidence for acute infarction. There is no midline shift, mass effect, or ventricular enlargement seen. The axial gradient echo imaging demonstrates no evidence for intracranial hemorrhage. Axial FLAIR imaging demonstrates extensive periventricular, deep, and subcortical white matter T2 and FLAIR hyperintensity, similar when compared to the prior examination, suggesting significant small v essel disease. Arterial flow-voids at the axial level of the skull base appear grossly unremarkable on the T2-weight ed imaging. There is mild mucosal thickening involving the maxillary sinus on the right. There are a few scattered opacified mastoid air cells on the left, similar when compared to the 08/19 examination. Transverse artifact through the cerebellum limits detailed assessment. There is a punctate focus of enhancement within the lateral aspect of the right cerebellar hemisphere which measures approximately 2.0 mm, stable when compared to the prior examination, consistent with a punctate stable metastatic focus. There is a linear area of enhancement within the left cerebellar hemisphere measuring approximately 8.0 mm in transverse dimension, similar when compared to the prior examination, suggesting an additional stable metastatic focus. No supratentorial enhancing lesions a re noted. No supratentorial abnormal enhancement is identified on this examination. IMPRESSION: 1. Extensive white matter signal abnormality consistent with prior radiation therapy and/or prominen t small vessel disease. 2. Two subcentimeter foci of enhancement are noted within the cerebellum, one on the right and one t he left, suggesting two stable metastatic foci when compared to the 08/19/18 exam. Continued follow-u p is advised. Of note, when the patient undergoes follow-up imaging, the postcontrast imaging should be performed w ith thin section imaging, which was not provided on this examination, which limits detailed assessmen t for early/subtle metastatic disease. POS: [facility]
== END 2018-10-21 09:19 | disposition home or self-care (01) ==
LOC: BICMRI 09:18
PROVIDERS: ATTEND Radiology Radiation Oncology
DX: C50.919 Malignant neoplasm of unspecified site of unspecified female breast (principal); C79.31 Secondary malignant neoplasm of brain; R90.82 White matter disease, unspecified
CPT/HCPCS: 70553

== ENCOUNTER 2018-12-31 08:48 | Outpatient (CLI) | payer MEDICARE, OTHER ==
--- NOTE | 2018-12-31 12:21 | PET ---
PET WITH CT SKULL TO MID THIGH: COMPARISON: 09/15/18. CLINICAL HISTORY: Breast cancer with liver metastasis. RADIOPHARMACEUTICAL: 10.6 mCi [id number] intermixed with 10 mL 0.9% sodium chloride. There is appropriate biodistribution of radiotracer activity. FINDINGS: Redemonstration of hypermetabolic lesions of the liver, with interval size enlargement. The dominant hypermetabolic lesion demonstrates rim hyperintensity with a central, relatively hypometabolic centra l aspect, likely related to necrosis. The maximum SUV of the rim hypermetabolism is 9.5. This lesion is centered within the medial segment left hepatic lobe. The additional smaller lesion, centered with in the lateral segment left hepatic lobe, also demonstrates rim hypermetabolism, with maximum SUV of 6.3. Each of these SUV measurements has increased from the comparison exam. There is artifactual incr eased activity related to patient's left chest port located within the left chest wall, as well as at the terminal aspect of the catheter within the SVC. There is an enlarged calcified fibroid uterus. T here is a small, nonspecific focus of increased metabolic activity localizing to the interspinous spa ce of the L3-4 level. This could relate to a degenerative process. Correlation with Lumbar spine MRI may be obtained, as indicated. IMPRESSION: Interval size progression and increased SUV involving metastatic lesions of the left hepatic lobe, in dicating interval progression in metastases. POS: [facility]
== END 2018-12-31 08:49 | disposition home or self-care (01) ==
LOC: PET 08:48 → ULT 08:49
PROVIDERS: ATTEND Internal Medicine Hematology & Oncology
DX: Z51.11 Encounter for antineoplastic chemotherapy (principal); C50.111 Malignant neoplasm of central portion of right female breast; C78.7 Secondary malignant neoplasm of liver and intrahepatic bile duct; I35.1 Nonrheumatic aortic (valve) insufficiency; Z79.899 Other long term (current) drug therapy
CPT/HCPCS: 78815; 93306; A9552

== ENCOUNTER 2019-01-01 09:07 | Observation (INO) | payer MEDICARE, OTHER ==
[2019-01-01 09:35] LABS: #Eosinphils 0.1 thou/uL (0.0-0.7); #Lymphocytes 0.8 thou/uL (1.20-3.40); #Monocytes 0.4 thou/uL (0.11-0.59); #Neutrophils 3.7 thou/uL (1.40-6.50); %Basophils 0.7 % (0.0-1.0); %Eosinophils 2.8 % (0.0-10.0); %Lymphocytes 15.7 % (21.0-51.0); %Monocytes 8.4 % (0.0-10.0); %Neutrophils 72.4 % (42.0-75.0); Mean Corpuscular HGB CONC 32.2 g/dL (32.0-36.0); Mean Corpuscular Hemoglobin 29.3 pg (27.0-31.0); Mean Corpuscular Volume 90.8 fL (78.0-98.0); Mean Platelet Volume 10.6 fL (7.4-10.4); Platelet Count 172 thou/uL (130-400); RBC Distribution Width 14.3 % (11.5-14.5); Red Blood Cell (RBC) Count 5.12 mill/uL (4.20-5.40); White Blood Cell (WBC) Count 5.1 thou/uL (4.8-10.8)
[2019-01-01 09:43] LABS: INR-International Normal Ratio 0.9; PTT 28.4 SEC (22.9-36.1); Prothrombin Time 12.6 SEC (12.0-14.7)
--- NOTE | 2019-01-01 09:54 | CT ---
HEAD CT WITHOUT CONTRAST: Date: 01/01/19 HISTORY: Level I stroke activation. Unwitnessed fall due to left-sided weakness. History of breast cancer with brain mets. COMPARISON: None. FINDINGS: No parenchymal hemorrhage. No extra-axial hematoma. No midline shift. Basilar cisterns are patent. Br ain volume, age-appropriate. Cortical gurrola-white matter differentiation preserved. Ventricles and sul ci are patent and symmetric. Calvarium is intact. Adequate aeration of the sinuses and mastoid air ce lls. IMPRESSION: No acute intracranial process. Results of study discussed with Dr. Negrete on 01/01/19 at 0926 hours. CODE CR. POS: [facility]
--- NOTE | 2019-01-01 10:15 | CT ---
CT ANGIOGRAM OF THE HEAD CT ANGIOGRAM OF THE NECK: HISTORY: Level I stroke activation. Left-sided weakness, intermittent. Known brain metastases. COMPARISON: None. TECHNIQUE: CT angiogram of the head and neck are performed in the axial plane. Three-dimensional reformatted im ages are submitted for interpretation. FINDINGS: On the post contrast head CT, no pathologic enhancement of the brain parenchyma. Bilateral ocular lens implants are appropriate located. Both globes are intact. Retrobulbar fat is preserved. Symmetric attenuation of the optic nerves and ocular rectus muscles. Adequate aeration of the mastoid air cells. Partial opacification of the right maxillary sinus. Aer odigestive tract is patent. No mucosal abnormality. Midline fatty raphae of the tongue is preserved . Symmetric attenuation of the parotid and submandibular glands. Symmetric attenuation of the sternocleidomastoid muscles. No evidence of lymphadenopathy by size criteria. There are varying degrees of central canal stenosis and foraminal narrowing on the basis of degenerat nayeli change. There is no prevertebral soft tissue swelling. Upper mediastinum and lung apices are unremarkable. CT ANGIOGRAM: The visualized aortic arch has appropriate enhancement and luminal diameter. There is atherosclerosi s without significant stenosis. RIGHT CAROTID: The right carotid artery origin has appropriate enhancement and luminal diameter. Right common carot id artery has appropriate enhancement and luminal diameter. There are short segments of mild narrowi ng due to calcified and noncalcified plaque. At the right carotid bifurcation, there is a combinatio n of calcified and noncalcified plaque with resultant mild stenosis. There is mild stenosis involvin g the proximal right internal carotid artery. The remainder of the right internal carotid artery has appropriate enhancement and luminal diameter. No significant stenosis based upon NASCET criteria. LEFT CAROTID: The left carotid artery origin has appropriate enhancement and diameter. The left common carotid art claudette has mild short-segment stenosis due to atherosclerotic disease. There is mild to moderate narrow ing of the left carotid bifurcation and proximal left internal carotid artery due to calcified and no ncalcified plaque. The mid to distal left internal carotid artery has appropriate enhancement and medardo elvia diameter. Both subclavian arteries are patent. Both cervical vertebral arteries are patent throughout their co urse in the neck and are codominant. CT ANGIOGRAM OF THE HEAD: There is symmetric enhancement and luminal diameter of the distal cervical and intracranial internal carotid arteries. Anterior circulation demonstrates symmetric enhancement and luminal diameter of th e A1 and M1 segments. Proximal A2 segments and proximal MCA branches are unremarkable. POSTERIOR CIRCULATION: Left PICA artery origin is difficult to appreciate. Right PICA artery origin is difficult to appreci ate. Right PICA artery origin has appropriate enhancement and luminal diameter. Both vertebral dom eliu supply a normal-caliber basilar artery. There is short-segment mild to moderate narrowing invol ving the right P1 segment. IMPRESSION: 1. Atherosclerotic disease without significant stenosis based on NASCET criteria in both cervical ca rotid arteries 2. Short-segment mild to moderate narrowing of the right P1 segment. No significant stenosis in the anterior circulation. Results of the study were discussed with Dr. Negrete 01/01/2019 at 9:43 a.m. CODE CR POS: [facility]
[2019-01-01] MEDS ORDERED: ISOVUE-370 76%-LOCM 1 ML ONE (10:28)
[2019-01-01] MEDS ORDERED: Gadobenate Dimeglumine 529 MG/1 ML (20ML VIAL) ONE (10:38)
[2019-01-01 10:55] LABS: ALT (SGPT) 54 U/L (8-55); AST (SGOT) 71 U/L (5-34); Albumin 3.8 g/dL (3.4-4.8); Alkaline Phosphatase 151 U/L (40-150); Anion Gap 12 mmol/L (10-20); BUN (Urea Nitrogen) 11 mg/dL (9.8-20.1); Bilirubin, Total 0.4 mg/dL (0.2-1.2); CK (CPK) 109 U/L (29-168); Calc. Creatinine Clearance 0 mL/min (70-130); Calcium 9.6 mg/dL (7.8-10.44); Carbon Dioxide 25 mmol/L (23-31); Chloride 104 mmol/L (98-107); Estimated GFR-MDRD 80; Globulin 4.2 g/dL (2.4-3.5); Glucose 72 mg/dL (80-115); Potassium 3.7 mmol/L (3.5-5.1); Sodium 137 mmol/L (136-145)
[2019-01-01] MEDS ORDERED: Aspirin Chewable 81 MG TAB ONE (11:13)
[2019-01-01] MEDS ORDERED: Metoprolol Tartrate 25 MG TAB ONE (12:33)
[2019-01-01] MEDS ORDERED: Metoprolol Tartrate 50 MG TAB ONE (12:33)
[2019-01-01] MEDS ORDERED: Acetaminophen 650 MG Suppository PR PRN (12:38)
[2019-01-01] MEDS ORDERED: Senokot S 8.6-50 MG TAB PO PRN (12:38)
[2019-01-01] MEDS ORDERED: hydrALAZINE 20 MG/ML VIAL SLOW IVP PRN (12:42)
--- NOTE | 2019-01-01 13:28 | HP ---
PRIMARY CARE PROVIDER: Alberta Graham MD CHIEF COMPLAINT: Left-sided weakness. HISTORY OF PRESENT ILLNESS: Ms. Quevedo is a pleasant 68-year-old lady who was seen at [facility] on January 01, 2019. Prior to 2016, she only had diagnoses of hypertension and dyslipidemia. She was on medications for blood pressure. She was also on a statin which she had to discontinue secondary to body aches. In 2017, she was found to have breast cancer. She underwent bilateral mastectomies. She is also currently undergoing chemotherapy. She was also found to have metastases to the liver and brain. She underwent whole-brain radiation therapy last year. She had 2D echocardiogram and a PET scan yesterday. A 2D echocardiogram showed left ventricular ejection fraction of 50% to 55%, and E/A flow reversal, suggestive of diastolic dysfunction. PET scan, nuclear medicine study showed interval size progression and increased SUV involving metastatic lesions of the left hepatic lobe, indicating interval progression metastasis when compared to study from September 15, 2018. She was also supposed to come to [facility] today for an MRI of the brain. She woke up around 5 a.m.; at which time, she was fine. Sometime between 6 and 6:30 a.m., she developed left-sided weakness. She reports that she had to slowly lower herself to the ground, and she did not fall or hit her head. It lasted a few minutes. She was eventually able to get up and walk to her 's truck. On the way to Cancer Clinic, she had a recurrence of left-sided weakness. She was advised by a [facility] to go to the emergency room. The weakness resolved on the way to Cancer Clinic. She currently denies any chest pain or shortness of breath. She reports that her left upper extremity does not feel the same as her right upper extremity in terms of sensation, but has no other complaints. REVIEW OF SYSTEMS: All other systems reviewed and found to be negative. PAST MEDICAL HISTORY: Hypertension, dyslipidemia, and metastatic breast cancer. PAST SURGICAL HISTORY: Bilateral mastectomies, hernia repair, bilateral cataract surgeries, and MediPort placement. SOCIAL HISTORY: The patient denies tobacco use, alcohol use, or recreational drug use. FAMILY HISTORY: Hypertension in both parents. CODE STATUS: I discussed her code status. She is full code. ALLERGIES: SULFA, SULFAMETHOXAZOLE, TRIMETHOPRIM, AND PROBABLY STATINS. CURRENT MEDICATIONS: 1. Metoprolol succinate 50 mg daily. 2. Losartan 100 mg daily. 3. Kadcyla 100 mg as directed by Cancer Clinic. PHYSICAL EXAMINATION: GENERAL: On examination, Ms. Quevedo is awake and alert, not in acute distress. VITAL SIGNS: Blood pressure is 136/73, pulse 67, respiratory rate 19, and oxygen saturation 99% on room air. She is afebrile. HEENT: Eyes; no scleral icterus, no conjunctival pallor, status post bilateral cataract surgeries. ENT; moist mucosal membranes, no oropharyngeal erythema or exudates. NECK: Supple, nontender, trachea is midline. RESPIRATORY: Accessory muscles of breathing are not active. Chest wall movements are symmetric bilaterally. LUNGS: Clear to auscultation without wheeze, rhonchi, or crepitations. CARDIOVASCULAR: S1 and S2 are heard, regular. Peripheral pulses palpable. No carotid bruit. No pericardial rub. ABDOMEN: Soft, nontender, bowel sounds heard, no hepatomegaly, no splenomegaly. LYMPHATIC: No cervical lymphadenopathy. SKIN: No rashes or subcutaneous nodules. MUSCULOSKELETAL: Power is 5/5 in all 4 extremities. NEUROLOGIC: Cranial nerves 2 through 12 are intact. Power is 5/5 in all 4 extremities. No focal motor or sensory deficits. Deep tendon reflexes 2+. Plantar reflexes downgoing bilaterally. PSYCHIATRIC: Normal mood, normal affect. The patient is oriented to person, place, and time. LABORATORY DATA: Ms. Quevedo's labs and investigations were reviewed. Her electrocardiogram which shows normal sinus rhythm, no ST changes to suggest an acute coronary syndrome. I also reviewed her noncontrast CT scan of the brain, which does not show any bleed. She also had CT angiogram of the head and neck, which showed atherosclerotic disease without significant stenosis based on NASCET criteria in both cervical carotid arteries. She had a short segment [id number] narrowing of the right P1 segment and no significant stenosis in the anterior circulation. She has an unremarkable CBC, INR 0.9, normal electrolytes, normal creatinine, normal calcium, elevated AST of 71, normal ALT, elevated alkaline phosphatase of 151, alkaline phosphatase was normal at 119 on December 15, 2018, AST was 51 on December 15, 2018. She has normal troponin-I and normal albumin. CK is normal. ASSESSMENT AND PLAN: Ms. Quevedo is a pleasant 68-year-old lady who was seen at [facility] on January 01, 2019. Her problem list includes: 1. Transient ischemic attack: Ms. Quevedo is presenting with transient ischemic attack based on her symptoms. She will be admitted to the hospital for further management and investigations. I am starting her on aspirin for now. I am not starting her on statin given her history of myalgias. We will also check MRI brain with and without contrast to rule out brain metastases. We will also consult Neurology Service. 2. Hypertension: We will resume her home medications and also add p.r.n. antihypertensives. I will monitor vital signs and titrate antihypertensives as needed. 3. Abnormal liver function tests: Mild abnormalities in LFTs, most likely from known liver metastases. The patient does not have any abdominal complaints. 4. History of metastatic breast cancer: We will check MRI of the brain to rule out brain METs. She will be discharged into the care of Cancer Clinic once all investigations are completed. 5. DVT prophylaxis with low-molecular weight heparin. Many thanks for allowing me to participate in your patient's care. Please feel free to contact me with any questions or concerns. LEVEL OF RISK: High. LEVEL OF COMPLEXITY: High. Job ID: [id number]
[2019-01-01 14:31] VITALS: BMI 22.5
--- NOTE | 2019-01-01 17:06 | MRI ---
MRI BRAIN WITH AND WITHOUT CONTRAST: HISTORY: Breast cancer with brain metastases. The patient presents with weakness. Evaluate for stroke. Evaluate for progression of intracranial m etastases. COMPARISON: 10/21/2018 TECHNIQUE: A brain MRI is performed with and without intravenous Gadolinium administration. Multisequential, mu ltiplanar imaging is performed. FINDINGS: No hemorrhage on the axial gradient echo sequence. Redemonstration of confluent T2 and FLAIR white m atter hyperintensity without associated enhancement. Chronic small vessel ischemic changes are favor ed. Central arterial flow voids are maintained. Absent restricted diffusion. Cortical gurrola white matter differentiation is preserved. No evidence of hydrocephalus. Brain volume is age appropriate. There is interval increase in the overall number of enhancing foci in the supratentorial and infraten torial brain. The largest enhancing focus continues to be in the left cerebellar hemisphere, measuri ng 1.1 x 0.4 cm. Additional smaller areas of enhancement are noted in the left cerebellar hemisphere , measuring approximately 5 mm. There is also evidence of punctate enhancement involving the right f rontal subcortical white matter, left centrum semiovale, and left subependymal region. Findings sugg est progression of intracranial metastases. There is no significant associated edema, mass effect, o r midline shift. The subependymal lesion measures approximately 5 mm in greatest dimension. The les ions in the gurrola white matter junction are approximately 3 mm. The lesion in the left centrum semiov margarita is approximately 2 mm. There is right maxillary sinus disease and partial opacification of the left mastoid air cells. IMPRESSION: 1. Findings suggestive of slight progression of intracranial metastases. 2. Absent restricted diffusion. No acute infarct. POS: [facility]
[2019-01-01] MEDS: Acetaminophen 325 MG TAB PO PRN (21:13)
[2019-01-02 05:35] LABS: #Basophils 0.1 thou/uL (0.0-0.2); #Eosinphils 0.3 thou/uL (0.0-0.7); #Lymphocytes 0.7 thou/uL (1.20-3.40); #Monocytes 0.6 thou/uL (0.11-0.59); #Neutrophils 3.6 thou/uL (1.40-6.50); %Basophils 1.1 % (0.0-1.0); %Eosinophils 5.2 % (0.0-10.0); %Lymphocytes 13.9 % (21.0-51.0); %Monocytes 11.8 % (0.0-10.0); Hemoglobin 13.9 g/dL (12.0-16.0); Mean Corpuscular HGB CONC 31.8 g/dL (32.0-36.0); Mean Corpuscular Hemoglobin 29.4 pg (27.0-31.0); Mean Corpuscular Volume 92.3 fL (78.0-98.0); Mean Platelet Volume 9.3 fL (7.4-10.4); Platelet Count 160 thou/uL (130-400); Red Blood Cell (RBC) Count 4.72 mill/uL (4.20-5.40); White Blood Cell (WBC) Count 5.3 thou/uL (4.8-10.8)
[2019-01-02 05:55] LABS: Anion Gap 11 mmol/L (10-20); BUN (Urea Nitrogen) 10 mg/dL (9.8-20.1); Calc. Creatinine Clearance 75 mL/min (70-130); Calcium 9.7 mg/dL (7.8-10.44); Carbon Dioxide 25 mmol/L (23-31); Cardiac Risk 6.5 (Less than 4.5); Chloride 105 mmol/L (98-107); Cholesterol 286 mg/dl (< 200 Desired); Estimated GFR-MDRD 82; Glucose 90 mg/dL (80-115); HDL Cholesterol 44 mg/dL (>60 Neg Risk); LDL Cholesterol, Calculated 215 mg/dL; Potassium 3.6 mmol/L (3.5-5.1); Sodium 137 mmol/L (136-145); Triglycerides 133 mg/dL (Less than 150)
[2019-01-02] MEDS ORDERED: Aspirin 325 mg Enteric Coated Tablet PO SCH (09:00)
[2019-01-02] MEDS ORDERED: Enoxaparin Sodium 40 MG/0.4 ML SYRINGE SC SCH (09:00)
--- NOTE | 2019-01-02 09:08 | CON ---
DATE OF CONSULTATION: 01/01/2019 CONSULTING PHYSICIAN: Hospitalist Services. IMPRESSION: 1. Weakness, possibly secondary to hypoglycemia. 2. Metastatic breast cancer. PLAN: As per her oncologist. HISTORY OF PRESENT ILLNESS: Ms. Quevedo is 68-year-old white female with a known history of breast cancer with metastases to the liver and brain. She has been undergoing chemo and radiation therapy. She got up in the morning and was walking into the kitchen to get something to eat. She started feeling generally weak and felt like she would not be able to support herself. She went down to the ground, but did not lose consciousness. She crawled to the couch and was able to get herself back up. She had her [facility] They did a preliminary exam and sent her to the emergency room. In the ER, the she had stable vital signs and normal pulse rate. She had a CT angio done, which was unremarkable. The MRI of the brain was done later yesterday, which a slight progression in her intracranial metastasis involving the left cerebellar hemisphere measuring 1.1 x 0.4 cm. Additionally, there was a small area of enhancement measuring 5 mm in the same region. She is feeling better today. Her lab work on admission showed fairly unremarkable findings other than a blood glucose of 72 later in the morning. She is without any focal neurologic complaints at this point. PAST MEDICAL HISTORY: Just breast cancer. FAMILY HISTORY: Noncontributory. ALLERGIES: SULFA. SOCIAL HISTORY: No tobacco or alcohol family. MEDICATIONS: Medication list was reviewed. . REVIEW OF SYSTEMS: A 10 system review of system was otherwise negative. PHYSICAL EXAMINATION: VITAL SIGNS: Blood pressure 159/77, pulse 70, respirations 16, temperature 98.4. HEENT: Pupils are equal and reactive. Conjunctivae clear. Oropharynx clear. NECK: Supple. EXTREMITIES: No cyanosis or edema. NEUROLOGIC: She is alert and appropriate. Her speech is fluent and clear. Exam is nonfocal. No abnormal movements are seen. No tremor. Dysmetria is present. LABORATORY DATA: Imaging was reviewed. SUMMARY: This is a 68-year-old woman with metastatic breast cancer that had some generalized weakness of nonspecific nature. It is possible she may have had a bit of hypoglycemia that morning before she had eaten. I do not see any neurologic issues. Job ID: [id number]
[2019-01-02] MEDS: Acetaminophen 325 MG TAB PO PRN (09:30)
[2019-01-02 12:10] VITALS: BP 159/77; TEMP 98.2
--- NOTE | 2019-01-02 12:42 | DIS ---
DATE OF ADMISSION: 01/01/2019 DATE OF DISCHARGE: 01/02/2019 PRIMARY CARE PROVIDER: Alberta Garham MD DISCHARGE DIAGNOSES: 1. Weakness. 2. Weakness, most likely secondary to hypoglycemia. CONSULTATIONS DURING THIS HOSPITALIZATION: Neurology, Braeden Jean-Baptiste MD CONDITION OF PATIENT ON THE DAY OF DISCHARGE: Stable. I assessed Ms. Quevedo on the day of discharge. She denies any weakness. She denies any chest pain or shortness of breath. Vital signs are stable. S1 and S2 are heard, regular. Lungs are clear to auscultation bilaterally. DISCHARGE MEDICATIONS: No change was made to her pre-admission home medications as dictated on my history and physical note dated January 01, 2019. HOSPITAL COURSE: Ms. Quevedo is a pleasant 68-year-old lady, who was admitted to [facility] on January 01, 2019, for left-sided weakness. Please refer to my history and physical note dated January 01, 2019 for further details. MRI of the brain showed slight worsening of intracranial metastatic disease. She was seen by Neurology Service. It was felt that her episode of weakness was secondary to hypoglycemic episode. She is being discharged home in a stable condition. On the day of discharge, she has normal electrolytes, normal creatinine, triglycerides 133, elevated cholesterol of 286, LDL cholesterol 215, and HDL cholesterol of 44. White count is 5300, hemoglobin 13.9, and platelet count 160,000. Many thanks for allowing me to participate in your patient's care. Please feel free to contact me with any questions or concerns. DISCHARGE DESTINATION: Home. Job ID: [id number]
--- NOTE | 2019-01-02 14:46 | CON ---
DATE OF CONSULTATION: REASON FOR CONSULTATION: Metastatic breast cancer. 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 The patient called the Cancer Clinic and stated she wanted to be seen due to left-sided weakness that began after she woke up yesterday morning. The patient complained of difficulty walking due to weakness in her left leg, difficulty holding her phone in her left arm compared to her right. She was examined in the clinic by myself and nursing staff and vital signs were stable. However, she did exhibit focal deficits on her left side and was taken over to the ER in a wheelchair. As per patient, her left-sided weakness slowly resolved while in the ER and currently feels back to her baseline. CT brain in the ER was negative as well as CT angio and MRI brain did not confirm any acute stroke, however, did show a slight interval progression in her brain lesions. Currently, the patient denies any other symptoms of headaches, nausea, vomiting, diarrhea, constipation, fever, shortness of breath, or cough. REVIEW OF SYSTEMS: Ten-point review of systems negative except as per HPI. PAST MEDICAL HISTORY: Metastatic breast cancer and hypertension. PAST SURGICAL HISTORY: Bilateral mastectomies, cataract surgery, hernia repair, MediPort. SOCIAL HISTORY: No tobacco or alcohol. FAMILY HISTORY: Noncontributory. ALLERGIES: SULFA DRUGS, TRIMETHOPRIM, MYALGIA WITH STATINS. CURRENT MEDICATIONS: Reviewed. PHYSICAL EXAMINATION: VITAL SIGNS: Temperature 98.2, pulse 67, respirations 20, saturating 99% on room air, blood pressure 159/77. GENERAL APPEARANCE: The patient is lying in bed, in no acute distress. HEENT: Normocephalic, atraumatic. No scleral icterus noted. NECK: Supple. RESPIRATORY: Respirations are nonlabored and lungs are clear. CARDIOVASCULAR: S1, S2. Regular rate and rhythm. ABDOMEN: Soft, nondistended, nontender. LYMPHATICS: No lymphadenopathy. SKIN: No rashes. NEUROLOGIC: Cranial nerves 2 through 12 are grossly intact. Strength is 5/5 in all four extremities proximally and distally. PSYCHIATRIC: The patient is awake, alert, and oriented x3. LABORATORY DATA: White blood cells 5.3, hemoglobin 13.9, platelets 160. Sodium 137, potassium 3.6, BUN 10, creatinine 0.71. Cholesterol 286, LDL 215, HDL 44, triglycerides 133. IMAGING DATA: MRI shows interval increase in overall number of enhancing foci in the supratentorial and infratentorial brain. Largest focus in the left cerebellum is 1.1 x 0.4 cm with additional smaller areas of enhancement noted in the left cerebellar hemisphere measuring approximately 5 mm. There is evidence of punctate enhancement involving the right frontal-subcortical white matter, left centrum semiovale and left subependymal region. Findings are suggestive of progression of intracranial metastases. There is no significant edema, mass effect, or midline shift. Majority of lesions are 5 mm and smaller. ASSESSMENT AND PLAN: A 68-year-old female with metastatic breast cancer to liver and brain, presenting with acute onset of left-sided weakness that resolved without intervention and the MRI did not show any acute stroke. This is most likely consistent with a transient ischemic attack. She has been started on aspirin and should continue this on an outpatient basis. I have discussed the MRI findings with her primary oncologist, Dr. Black and radiation oncologist, Dr. Sarmiento, who will consider the patient for SRS on an outpatient basis. She may be discharged with outpatient followup with Dr. Sarmiento and Dr. Black and she has appointment scheduled for January 05, to see them and to receive her Chandukyyla. Job ID: [id number]
== END 2019-01-02 13:30 | disposition home or self-care (01) ==
LOC: ERS 09:07 → 2SE 14:06
PROVIDERS: ADMIT Internal Medicine; ATTEND Internal Medicine
DX: R53.1 Weakness (principal); I10 Essential (primary) hypertension; E78.5 Hyperlipidemia, unspecified; C50.912 Malignant neoplasm of unspecified site of left female breast; C50.911 Malignant neoplasm of unspecified site of right female breast; C78.7 Secondary malignant neoplasm of liver and intrahepatic bile duct; C79.31 Secondary malignant neoplasm of brain; Z90.13 Acquired absence of bilateral breasts and nipples; Z92.21 Personal history of antineoplastic chemotherapy; Z92.3 Personal history of irradiation; Z88.2 Allergy status to sulfonamides; Z88.1 Allergy status to other antibiotic agents; Z88.8 Allergy status to other drugs, medicaments and biological substances; Z79.899 Other long term (current) drug therapy; Z98.890 Other specified postprocedural states
CPT/HCPCS: 70450; 70496; 70498; 70553; 80048; 80053; 80061; 82550; 82962; 84484; 85025 ×2; 85610; 85730; 87040; 93005; 96372; 96374; 99285; G0378 ×2; 36415; 36416; A9577; J0360; J1650; Q9966

== ENCOUNTER 2019-02-19 08:08 | Inpatient (IN) | payer MEDICARE, OTHER ==
[2019-02-19 08:43] LABS: Hemoglobin 17.2 g/dL (12.0-16.0); Mean Corpuscular HGB CONC 32.6 g/dL (32.0-36.0); Mean Corpuscular Hemoglobin 28.7 pg (27.0-31.0); Mean Corpuscular Volume 87.9 fL (78.0-98.0); Platelet Count 223 thou/uL (130-400); RBC Distribution Width 14.5 % (11.5-14.5); White Blood Cell (WBC) Count 9.1 thou/uL (4.8-10.8)
[2019-02-19 08:44] LABS: #Lymphocytes 1.1 thou/uL (1.20-3.40); #Monocytes 0.4 thou/uL (0.11-0.59); #Neutrophils 7.6 thou/uL (1.40-6.50); %Basophils 0.3 % (0.0-1.0); %Eosinophils 0.4 % (0.0-10.0); %Lymphocytes 11.5 % (21.0-51.0); %Monocytes 4.6 % (0.0-10.0); %Neutrophils 83.2 % (42.0-75.0)
[2019-02-19 08:51] LABS: Anion Gap 15 mmol/L (10-20); BUN (Urea Nitrogen) 11 mg/dL (9.8-20.1); Calc. Creatinine Clearance 0 mL/min (70-130); Calcium 9.8 mg/dL (7.8-10.44); Carbon Dioxide 20 mmol/L (23-31); Chloride 99 mmol/L (98-107); Estimated GFR-MDRD 80; Glucose 148 mg/dL (80-115); Potassium 3.3 mmol/L (3.5-5.1); Sodium 131 mmol/L (136-145)
[2019-02-19] MEDS ORDERED: hydrALAZINE 20 MG/ML VIAL ONE (08:53)
[2019-02-19] MEDS ORDERED: Heparin 10,000 UNITS/1 ML VIAL ONE (08:55)
[2019-02-19] MEDS ORDERED: Clopidogrel Bisulfate 300 MG TAB ONE (09:17)
[2019-02-19] MEDS ORDERED: Nitroglycerin 50 MG/250 ML BOT 250 ML ONE (09:17)
[2019-02-19] MEDS ORDERED: Iopamidol 370 76% 100 ML VIAL ONE (09:57)
[2019-02-19] MEDS ORDERED: Iopamidol 370 76% 50 ML VIAL FS ONE (09:57)
[2019-02-19] MEDS ORDERED: Nitroglycerin 0.4 MG TAB (25 Tab Bottle) SL PRN (10:34)
[2019-02-19] MEDS ORDERED: Morphine 2 MG/ML SYRINGE SLOW IVP PRN (10:34)
[2019-02-19] MEDS ORDERED: Sodium Chloride 0.9% 1,000 ML IV SCH (10:45)
[2019-02-19] MEDS ORDERED: Nitroglycerin 0.4 MG TAB (25 Tab Bottle) ONE (10:54)
[2019-02-19] MEDS ORDERED: Morphine 2 MG/ML SYRINGE ONE (11:07)
--- NOTE | 2019-02-19 11:36 | CCL ---
CARDIOLOGY PROCEDURE NOTE: Date: 02/19/19 PROCEDURE: Selective coronary arteriography, thrombectomy of LAD-diagonal, stent placement in the proximal to mid LAD, and another stent in the more distal mid LAD. INDICATION: Anterior STEMI. DESCRIPTION OF PROCEDURE: The patient was brought to the cardiac coreroom foundry laborer from the emergency room and the right groin was prepped and draped in the usual fashion. 1% lidocaine was infiltrated. A 6 Brazilian sheath was placed into the right femoral artery. ACTs were obtained and heparin given to achieve ACT of greater than 300. A 6 Brazilian Beverly left-4 followed by a 6 Brazilian Beverly right-4 was used for coronary arteriography. A 6 Brazilian Beverly left-4 guide catheter was inserted. There appeared to be thrombus in the LAD extending into the first diagonal, and a floppy Choice wire was placed into the first diagonal. There was some difficulty in getting the second wire to go into the LAD. Therefore, the decision was made to proceed with thrombectomy. I was extremely hesitant to give more potent anticoagulants than heparin in this lady with brain metastasis. Some thrombotic material was removed. The second floppy Choice was then able to be directed into the continuation of the LAD. The area was then predilated with Emerge 3.0 x 15 mm balloon. This was removed. The patient was given Plavix 600 mg PO. IV nitroglycerin was started for elevated blood pressure. Also, nitroglycerin 200 mcg was given. In the mid LAD, Rebel 2.25 x 12 mm stent was positioned and deployed. In the proximal to mid LAD, Rebel 3.0 x 20 mm stent was positioned. The proximal portion was postdilated with a 3.5 mm and then a 4 mm balloon. The result was excellent and the wire in the diagonal was removed, and then the LAD wire was removed. Sheath was sutured in place. RESULTS: CORONARY ARTERIOGRAPHY: 1. The left main was normal. 2. The LAD had a 95% proximal stenosis and then there was thrombus in the LAD that extended into the first diagonal. There was an 80% mid LAD. 3. The circumflex was normal. 4. The right coronary artery had a 50% proximal stenosis and a 20% mid stenosis. INTERVENTION RESULTS: Some thrombotic material was removed. The mid LAD was reduced from 80% to 0%. The proximal to mid LAD was reduced from 95% to 0%. IMPRESSION: 1. Two vessel coronary artery disease (RCA and LAD). 2. Successful bare metal stent placement in the mid LAD and the proximal to mid LAD. CHAPARRITA
[2019-02-19 11:53] VITALS: BMI 21.3
--- NOTE | 2019-02-19 11:55 | HP ---
HISTORY OF PRESENT ILLNESS: Yuval Quevedo is a 68-year-old white female with past medical history of metastatic breast cancer. She has brain metastasis, has undergone radiation therapy as well as liver metastasis. She currently is having chemotherapy. She was recently admitted on January 01, 2019, with what was felt to be a TIA and was placed on aspirin. There was concern that some of her neurological symptoms may have been due to her brain metastasis. On February 17 at 1 a.m., she awoke with chest pressure. The episodes would last 5 to 6 minutes and were repetitive throughout the night. It lasted 5 to 6 hours. She did well the rest of February 17. Then, February 18 at 10 p.m., she started to have the same type of discomfort. This continued throughout the night. At times, she becomes somewhat diaphoretic with this, but denied any nausea, vomiting, or shortness of breath. She went to the emergency room in [place], found to have ST-elevation anteriorly, but also had Q-waves. She is transferred for further treatment. PAST MEDICAL HISTORY: Remarkable for hypertension, hyperlipidemia intolerant of statins, metastatic breast cancer with brain and liver mets. PAST SURGICAL HISTORY: Bilateral mastectomy, hernia repair, bilateral cataract surgery, and MediPort placement. SOCIAL HISTORY: She does not smoke or drink. FAMILY HISTORY: Father had congestive heart failure, but apparently did not have myocardial infarction. MEDICATIONS: 1. Aspirin 325 daily. 2. Losartan 100 mg daily. 3. Kadcyla 100 mg. 4. Metoprolol succinate 50 daily. ALLERGIES: STATIN MEDICATIONS CAUSE MUSCLE PAIN, SULFA DRUGS. REVIEW OF SYSTEMS: A 12-point review of systems is otherwise unremarkable. PHYSICAL EXAMINATION: VITAL SIGNS: Blood pressure 160/80 and pulse of 90. HEENT: PERRL. NECK: Supple. CHEST: Clear. CARDIAC: S1 and S2 normal without any S3, S4, or murmurs. ABDOMEN: Normal bowel sounds without tenderness or organomegaly. EXTREMITIES: Revealed no clubbing, cyanosis, or edema. NEUROLOGIC: Grossly intact. SKIN: Warm and dry. LABORATORY DATA: EKGs are not available at this time where I am dictating. In the emergency room, as I recall, this showed new Q-waves V1 through V3 with [address]-elevation. She had diffuse T-wave inversion as she did on EKG January 01, 2019. Blood work from [place] revealed hemoglobin 16.5, hematocrit 51.1, white count 8200, platelets 238,000. Sodium 131, potassium 3.3, chloride 99, carbon dioxide 20, BUN 11, creatinine 0.73, glucose 148. CK-MB 34.4. Troponin I of 3.494. Troponin I here is 4.007. AST 106, ALT 175, chronically elevated liver function tests due to her liver mets. It is also of note that she had a cholesterol of 305, triglycerides 165, HDL 52, and LDL 220 three weeks ago. IMPRESSION: 1. Anteroseptal ST-elevation myocardial infarction. It appears that she has developed Q-waves. 2. Metastatic breast cancer with brain metastasis, status post radiation therapy. On most recent MRI 6 weeks ago, these lesions appear to have progressed. 3. Hypertension. 4. Hyperlipidemia, intolerance to statins. She needs to be placed on a PCSK9 medication. RECOMMENDATIONS: Discussed with the patient. She is at significantly increased risk of intracranial bleeding with anticoagulation for intervention. She understands this and does agree to proceed to high density press laborer. Bare-metal stent will be placed to limit the time on dual-antiplatelet therapy. Risks of catheterization were discussed including , myocardial infarction, dye reaction, vascular injury, CVA, transfusion, limb loss, renal loss, etc. Also risks of intervention with stent placement were discussed including , myocardial infarction, emergent CABG, restenosis, stent thrombosis, vessel perforation, etc. She understands, agrees to proceed. Job ID: [id number] MTDD
[2019-02-19 17:00] LABS: CKMB 261.8 ng/mL (0-6.6)
[2019-02-19 21:06] LABS: Critical Call Chem Troponin I RESULT DECREASING
[2019-02-19 21:24] LABS: CKMB 193.8 ng/mL (0-6.6); Critical Call CKMB RESULT DECREASING
[2019-02-20 02:30] LABS: #Monocytes 0.6 thou/uL (0.11-0.59); #Neutrophils 5.9 thou/uL (1.40-6.50); %Basophils 0.3 % (0.0-1.0); %Eosinophils 0.2 % (0.0-10.0); %Lymphocytes 13.4 % (21.0-51.0); %Monocytes 8.4 % (0.0-10.0); %Neutrophils 77.7 % (42.0-75.0); Hemoglobin 15.4 g/dL (12.0-16.0); Mean Corpuscular HGB CONC 33.9 g/dL (32.0-36.0); Mean Corpuscular Hemoglobin 29.9 pg (27.0-31.0); Mean Corpuscular Volume 88.2 fL (78.0-98.0); Mean Platelet Volume 9.1 fL (7.4-10.4); Platelet Count 194 thou/uL (130-400); RBC Distribution Width 14.4 % (11.5-14.5); Red Blood Cell (RBC) Count 5.16 mill/uL (4.20-5.40); White Blood Cell (WBC) Count 7.6 thou/uL (4.8-10.8)
[2019-02-20 02:55] LABS: ALT (SGPT) 54 U/L (8-55); AST (SGOT) 299 U/L (5-34); Albumin 3.4 g/dL (3.4-4.8); Alkaline Phosphatase 135 U/L (40-150); Anion Gap 14 mmol/L (10-20); BUN (Urea Nitrogen) 16 mg/dL (9.8-20.1); Calc. Creatinine Clearance 70 mL/min (70-130); Calcium 9.5 mg/dL (7.8-10.44); Carbon Dioxide 19 mmol/L (23-31); Chloride 102 mmol/L (98-107); Estimated GFR-MDRD 81; Globulin 4.1 g/dL (2.4-3.5); Glucose 124 mg/dL (80-115); Potassium 3.4 mmol/L (3.5-5.1); Protein, Total 7.5 g/dL (6.0-8.3); Sodium 132 mmol/L (136-145)
[2019-02-20 03:15] LABS: Critical Call Chem Troponin I RESULT DECREASING
[2019-02-20 03:36] LABS: CKMB 100.4 ng/mL (0-6.6); Critical Call CKMB RESULT DECREASING
--- NOTE | 2019-02-20 08:02 | CT ---
CT Head without IV contrast COMPARISON: 01/01/2019 HISTORY: Code green. Level 1 stroke alert. Left facial droop and slurred speech starting at 0730 hours. TECHNIQUE: Axial CT imaging at 5 mm intervals from vertex through skull base without contrast FINDINGS: There is no evidence of an acute infarction, hemorrhage, mass effect, or midline shift. There is decr eased attenuation seen in the periventricular white matter which is nonspecific but likely attributable to chronic small vessel ischemic changes. There is mild cerebral volume loss. The ventri cular system is normal in size, shape, and position for the degree of sulcal atrophy. Visualized paranasal sinuses are clear. Osseous structures appear intact.CT of the head is overall stable compared to study on 01/01/2019 IMPRESSION: 1. No acute intracranial abnormality demonstrated. 2. Moderate to severe chronic small vessel ischemic changes overall similar to prior study of 9. No acute cortical infarction is visualized. However, given the degree of chronic white matter ischemic changes, MRI would be more sensitive study of choice for evaluation of an acute white matter infarction. 3. Above findings were discussed with Greg in the CCU on 02/20/2019 at 0757 hours.
[2019-02-20 08:04] LABS: INR-International Normal Ratio 1.1; PTT 28.3 SEC (22.9-36.1); Prothrombin Time 13.9 SEC (12.0-14.7)
[2019-02-20 08:14] LABS: CKMB 60.7 ng/mL (0-6.6); Critical Call CKMB RESULT DECREASING; Critical Call Chem Troponin I RESULT DECREASING; Troponin I 42.733 ng/mL (< 0.028)
[2019-02-20] MEDS: Ezetimibe 10 MG TAB PO SCH (10:05)
[2019-02-20] MEDS: Clopidogrel Bisulfate 75 MG TAB PO SCH (10:05)
[2019-02-20] MEDS: Aspirin Chewable 81 MG TAB PO SCH (10:05)
--- NOTE | 2019-02-20 14:47 | CON ---
DATE OF CONSULTATION: REASON FOR CONSULT: Breast cancer. HISTORY OF PRESENT ILLNESS: Ms. Quevedo is a pleasant 68-year-old female with history of stage 4 breast cancer with liver and brain metastases with recent CVA. She was recently started on oral chemotherapy consisting of Xeloda and lapatinib. She took approximately for 7 days and presented to our clinic yesterday for routine evaluation. Yesterday, she stated she had chest pain. She was awoken by chest pain and tingling during the night. She took an aspirin and went back to sleep. 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 Xeloda was held. She continued lapatinib. Friday night, she began to have severe chest pain and went to the emergency room for evaluation. She was found to have an acute PR. She went to the greenhouse laborer and had stents placed. She is currently in the ICU. She denies any chest pain or shortness of breath at this time. PAST MEDICAL HISTORY: 1. Metastatic breast cancer. 2. Hypertension. PAST SURGICAL HISTORY: 1. Bilateral mastectomies. 2. Cataract surgery. 3. Hernia repair. 4. MediPort placement. ALLERGIES: TO SULFA, TRIMETHOPRIM, AND STATINS. HOME MEDICATIONS: 1. Losartan/hydrochlorothiazide daily. 2. Metoprolol 50 mg b.i.d. 3. MVI daily. FAMILY HISTORY: The father had congestive heart failure. SOCIAL HISTORY: No alcohol, tobacco, or illicit drug use. REVIEW OF SYSTEMS: A 10-point review of systems is negative. PHYSICAL EXAMINATION: VITAL SIGNS: Temperature 98.0, pulse is 79, respiratory rate 22, blood pressure is 97/71, and she is 97% on room air. GENERAL: Well-developed, well-nourished female, in no acute distress. HEENT: Normocephalic and atraumatic. Pupils are equal and reactive to light. NECK: Supple. CV: Regular rate and rhythm. LUNGS: Clear. ABDOMEN: Soft and nontender. Bowel sounds are positive. EXTREMITIES: No clubbing, cyanosis, or edema. SKIN: No rash. HEMATOLOGIC: No petechiae or purpura. NEUROLOGIC: Nonfocal. PSYCH: The patient is alert, oriented, and appropriate. PERTINENT LABS AND X-RAYS: Current WBCs are 7.6, hemoglobin 15.4, hematocrit 45.5, and platelet count 194,000. She got 77% neutrophils and 13% lymphocytes. Sodium is 132, potassium 3.4, chloride 102, CO2 is 19, BUN is 16, creatinine 0.72, calcium 9.5, bilirubin is 1.0, AST is 299, ALT is 54, and alkaline phosphatase is 135. CK-MB is 60 and troponin is 42. Serum total protein 7.5, albumin 3.4, and globulin 4.1. ASSESSMENT: 1. Acute myocardial infarction status post stent placement. 2. History of metastatic breast cancer on oral chemotherapy. DISCUSSION: The patient's Xeloda and lapatinib will be held until she has recovered from her acute PR. No further intervention is required at this time for her cancer. She will follow-up next week in the clinic. Case discussed with Dr. Black. We will follow her hospital course. Thank you for the consult. Job ID: [id number] MTDD
[2019-02-20] MEDS: Carvedilol 3.125 MG TAB PO SCH (16:48)
[2019-02-21] MEDS: Aspirin Chewable 81 MG TAB PO SCH (08:35)
[2019-02-21] MEDS: Clopidogrel Bisulfate 75 MG TAB PO SCH (08:35)
[2019-02-21] MEDS: Ezetimibe 10 MG TAB PO SCH (08:35)
[2019-02-21] MEDS: Carvedilol 3.125 MG TAB PO SCH ×2 (08:35→17:50)
[2019-02-21] MEDS ORDERED: Furosemide 20 MG TAB PO SCH (13:30)
[2019-02-21] MEDS ORDERED: Propofol 1,000 MG/100 ML VIAL IV ONE (17:08)
[2019-02-22] MEDS: Clopidogrel Bisulfate 75 MG TAB PO SCH (08:02)
[2019-02-22] MEDS: Aspirin 325 mg Enteric Coated Tablet PO SCH (08:02)
[2019-02-22] MEDS: Carvedilol 3.125 MG TAB PO SCH ×2 (08:02→17:05)
[2019-02-22] MEDS: Ezetimibe 10 MG TAB PO SCH (08:02)
[2019-02-23] MEDS: Aspirin 325 mg Enteric Coated Tablet PO SCH (10:04)
[2019-02-23] MEDS: Carvedilol 3.125 MG TAB PO SCH ×2 (10:04→16:15)
[2019-02-23] MEDS: Clopidogrel Bisulfate 75 MG TAB PO SCH (10:04)
[2019-02-23] MEDS: Ezetimibe 10 MG TAB PO SCH (10:05)
[2019-02-23 16:14] VITALS: BP 143/67; TEMP 98.1
--- NOTE | 2019-02-24 04:21 | DIS ---
DATE OF ADMISSION: 02/19/2019 DATE OF DISCHARGE: 02/23/2019 DISCHARGE DIAGNOSES: 1. Anteroseptal ST elevation myocardial infarction with bare metal stent placement in the left anterior descending artery as well as thrombectomy of large into the diagonal. Early peak enzymes-MB . 2. Transient ischemic attack on January 20, 2019, as well as during this admission when she stood up and was related to hypotension. 3. Hypercholesterolemia with LDL of 220. Statin intolerance. 4. Hypertension. 5. Metastatic breast cancer with liver and bone METS, status post brain radiation. DISCHARGE MEDICATIONS: 1. Aspirin 325 daily. 2. Plavix 75 mg daily x1 month. 3. Carvedilol 3.125 b.i.d. 4. Zetia 10 daily. 5. Nitroglycerin p.r.n. 6. Arrangements have been made for Repatha 140 subcu q.2 weeks. DISCHARGE DISPOSITION: The patient will be seen in 1 to 2 months with lipid studies being obtained. HOSPITAL COURSE: Ms. Quevedo presented to the emergency room in [place] with chest discomfort. She was found to have ST elevation in the anterior chest leads. She also had Q-waves in these leads. She was transferred from [place] on intravenous heparin. There was concern about given her lytic therapy with her brain metastasis. We discussed options and risks and overall she agreed to go to the laborer [facility] producing farm. She was found to have a large thrombus in the proximal LAD with a tail extending into the first diagonal. A wire was placed in 1st diagonal and thrombectomy was performed. Ultimately in mid LAD, a bare metal stent-Rebel 2.25 x 12 was placed. In the proximal to mid LAD, Rebel 3.0 x 20 mm was placed, post dilated with 3.5 and then a 4.0 balloon. Final result was excellent. She did have 1 episode of transient left-sided weakness when she stood for the first time after catheterization. This resolved with laying down in bed. Cholesterol was 305, triglycerides 165, HDL 52, and LDL 220. She was placed on Zetia and also arrangements are made for her to try to obtain Repatha 140 q.2 weeks. She would take the Plavix for 1 month and then discontinue that. Job ID: [id number]
== END 2019-02-23 16:55 | disposition home or self-care (01) | DRG 229 ==
LOC: ERS 08:08 → CCU 08:54 → 2NO 02-22 05:14
PROVIDERS: ADMIT Internal Medicine Cardiovascular Disease; ATTEND Internal Medicine Cardiovascular Disease
PROC: 02C00ZZ Extirpation of Matter from Coronary Artery, One Artery, Open Approach (ICD-10-PCS; principal; 2019-02-19)
PROC: 02703EZ Dilation of Coronary Artery, One Artery with Two Intraluminal Devices, Percutaneous Approach (ICD-10-PCS; 2019-02-19)
PROC: 4A023N7 Measurement of Cardiac Sampling and Pressure, Left Heart, Percutaneous Approach (ICD-10-PCS; 2019-02-19)
PROC: B2111ZZ Fluoroscopy of Multiple Coronary Arteries using Low Osmolar Contrast (ICD-10-PCS; 2019-02-19)
DX: I21.09 ST elevation (STEMI) myocardial infarction involving other coronary artery of anterior wall (principal); C79.31 Secondary malignant neoplasm of brain; C78.7 Secondary malignant neoplasm of liver and intrahepatic bile duct; I10 Essential (primary) hypertension; E78.5 Hyperlipidemia, unspecified; Z85.3 Personal history of malignant neoplasm of breast; Z88.2 Allergy status to sulfonamides; Z98.42 Cataract extraction status, left eye; Z98.41 Cataract extraction status, right eye; Z79.82 Long term (current) use of aspirin; Z88.8 Allergy status to other drugs, medicaments and biological substances; Z86.73 Personal history of transient ischemic attack (TIA), and cerebral infarction without residual deficits; Z79.899 Other long term (current) drug therapy
CPT/HCPCS: 36415; 36416; 70450; 80053; 82248; 82550; 82553; 83615; 84100; 84484; 84550; 85025; 85347; 85610; 85730; 92941; 93005; 93010; 93306; 93454; 93798; C1725; C1757; C1769; C1876; C1887; J0360; J1642; J1644; J2270; J2704; Q9967

== ENCOUNTER 2019-04-13 10:57 | Outpatient (CLI) | payer MEDICARE, OTHER ==
--- NOTE | 2019-04-13 12:00 | MRI ---
Exam: BRAIN MRI WITH AND WITHOUT CONTRAST: HISTORY: Breast cancer. Restaging for brain metastases. COMPARISON: 01/01/2019, 10/21/2018. FINDINGS: Gradient echo sequence: No hemorrhage Calvarium: Appropriate T1 marrow signal intensity Midline brain parenchyma: Unremarkable Cerebrum:Redemonstration of confluent T2 and FLAIR white matter hyperintensities along the cerebrum c ompatible with chronic small vessel ischemic change. There is also intrinsic T1 hyperintensity involving bilateral deep gurrola matter structures as well as the white matter adjacent to the frontal h orn of both lateral ventricles. There is progression of T2 and FLAIR hyperintensities involving the left cerebellar hemisphere. There is effacement of the left cerebellar folia. Ventricles: No evidence of hydrocephalus. Sinuses and mastoid air cells: Interval partial opacification of bilateral mastoid air cells. Diffusion: Central arterial flow is maintained. Absent restricted diffusion. Postcontrast images:Extensive supratentorial and infratentorial enhancing foci compatible with multif ocal brain parenchymal metastases. Direct comparison is slightly limited as the current examination does have thin section postcontrast images. When taking variation in slice thickness into considerati on, there does appear to be progression of disease. New right parafalcine likely dural metastatic lesion measuring 0.6 x 0.6 cm. There is an enhancing cortical metastatic focus in the anterior right temporal lobe which was not present on the previous examination, measuring 0.4 x 0.5 cm. New enhancing metastatic deposit in the left temporal lobe measuring 0.5 x 0.5 cm. The previously reporte d subependymal metastases along the posterior body of the left lateral ventricle is once again demonstrated and stable. There is also evidence of progression of metastases involving the cerebellum . There is a new enhancing focus in the midline of the cerebellum, just posterior to the fourth ventricle measuring 0.8 x 0.6 cm. This may represent a metastatic focus in the cerebellar vermis. The re are multiple enhancing foci in the left and right cerebellar hemisphere which have progressed since the previous examination. The largest metastatic focus is in the left cerebellar hemisphere castillo suring 1.7 x 0.7 cm (previously measuring 0.4 x 1.1 cm). Additional new metastatic deposits the right cerebellar hemisphere are identified. IMPRESSION: Evidence of progression of intracranial metastases with enlarging and new lesions in the cerebrum as well as cerebellum. Transcribed Date/Time: 04/13/2019 12:33 PM
== END 2019-04-13 10:58 | disposition home or self-care (01) ==
LOC: MRI 10:57
PROVIDERS: ATTEND Radiology Radiation Oncology
DX: C50.919 Malignant neoplasm of unspecified site of unspecified female breast (principal); C79.31 Secondary malignant neoplasm of brain; G93.9 Disorder of brain, unspecified
CPT/HCPCS: 70553

== ENCOUNTER 2019-04-15 09:38 | Outpatient (CLI) | payer MEDICARE, OTHER ==
--- NOTE | 2019-04-15 12:29 | PET ---
Nuclear medicine FDG PET/CT: (Positron emission tomography and computed tomography) DATE: 04/15/2019 HISTORY: 68-year-old female with breast cancer metastatic to the liver and brain. Restaging, follow-up. COMPARISON: 12/31/2018 TECHNIQUE: IV injection of F-18 fluorodeoxyglucose (FDG) dose: 11.2 mCi. PET scan and attenuation correction CT performed from skull base to proximal thighs. FINDINGS: SUV (standard uptake values) numbers given are maximum SUVs. QCLR used. Previously, there was artifactually increased uptake at the tip of the implantable vascular access po rt in the superior vena cava, where there was retention of injected FDG. That is no longer the case. Also increased uptake in the portion of the access port at the left anterior chest also had res idual FDG. That is also no longer the case. There are no regions of suspicious abnormally increased FDG uptake in the neck, chest, or pelvis. Again noted is the very large, confluent region of increased FDG uptake throughout the left lobe of l iver and much of the right lobe of the liver. All of the increased uptake is along the periphery of the large confluent lesion, and there is no uptake in the central, necrotic portion. The size of the tumor involvement has increased somewhat, encroaching more upon the right lobe of liver than previously. Previously, the greatest transverse dimension was approximately 12.5 cm, but it is curren tly about 15.5 cm. Within the region of interest cervical is opened up wide, the maximum SUV on the previous PET was 10. 3. It is currently 10.4, not significantly changed. There are no other regions of suspicious abnormally increased uptake within the abdominal cavity. IMPRESSION: 1) interval progression of large hepatic tumor mass: Interval increase in size, but no significant in crease in maximum SUV. 2) no other areas of increased FDG uptake.
== END 2019-04-15 09:39 | disposition home or self-care (01) ==
LOC: PET 09:38
PROVIDERS: ATTEND Internal Medicine Hematology & Oncology
DX: C50.919 Malignant neoplasm of unspecified site of unspecified female breast (principal); C79.31 Secondary malignant neoplasm of brain; C78.7 Secondary malignant neoplasm of liver and intrahepatic bile duct
CPT/HCPCS: 78815; A9552

== ENCOUNTER 2019-05-03 16:37 | Inpatient (IN) | payer MEDICARE, OTHER ==
[2019-05-03] MEDS ORDERED: Dexamethasone 10 MG/ML VIAL ONE (17:17)
[2019-05-03] MEDS ORDERED: Acetaminophen 325 MG TAB PO PRN (18:33)
[2019-05-03] MEDS ORDERED: Ondansetron ODT 4 MG TAB PO PRN (18:33)
[2019-05-03] MEDS ORDERED: HYDROcodone/Acetaminophen 5/325 mg Tablet PO PRN (18:33)
[2019-05-03] MEDS ORDERED: Senokot S 8.6-50 MG TAB PO PRN (18:33)
[2019-05-03 18:35] LABS: Bilirubin Large (Negative); Blood, Urine Negative (Negative); Clarity CLEAR (Clear); Glucose, Urine (Dipstick) Negative (Negative); Leukocyte Trace (Negative); Nitrite Negative (Negative); Protein, Urine (Dipstick) 30 mg/dL (Neg-Trace)
[2019-05-03 18:37] LABS: Bacteria/HPF None Seen HPF (None Seen); Pathc Cast-AUWi Flag 2.17 (0-2.49); Squamous Epithelial 0-3 HPF (0-3)
[2019-05-03 18:45] LABS: Hyaline Casts/LPF 0-3 HYALINE CAST LPF (0-3 Hyaline)
[2019-05-03 20:32] VITALS: BMI 20.9
[2019-05-03] MEDS: Famotidine 20 MG TAB PO SCH (21:34)
[2019-05-03] MEDS ORDERED: Dexamethasone 4 mg/ml Vial SLOW IVP SCH (23:59)
--- NOTE | 2019-05-04 03:36 | HP ---
PRIMARY CARE PHYSICIAN: Alberta Graham MD. CHIEF COMPLAINT: Left-sided weakness. HISTORY OF PRESENT ILLNESS: Ms. Quevedo is a pleasant 68-year-old female who was seen at [facility] initially at the ER in [place] today after she experienced some left-sided weakness in the shower. Reports that her speech also has some dysarthria, lasted about 30 minutes to an hour and resolved by the time she was seen in the emergency room at [place]. The patient's past medical history is pertinent for breast cancer with liver and brain metastases, also hypertension. The patient had a brain MRI on 04/13/2019, which showed evidence of progression of intracranial metastasis with enlarging and new lesions in the cerebrum as well as the cerebellum. The patient was seen here in February 2019 for an atrial septal ST elevation myocardial infarction. At that time, she had developed some Q-waves, was taken to the [facility] where a bare metal stent placement in the left anterior descending artery as well as a thrombectomy of large thrombus extending into the diagonal was performed. The patient does report that she sees Dr. Black and does take oral chemotherapy. The patient had a CT scan while in the emergency room at [place], which showed no evidence of midline shift or acute hemorrhage. Extensive bilateral chronic white matter ischemic changes. Abnormal low attenuation change in the left cerebellar hemisphere, evidence for edema from known metastatic focus. The numerous enhancing metastases seen on prior MRI study are not adequately demonstrated on this noncontrast study. The patient and family both report that the patient's skin and urine have become more yellow. The patient's bilirubin 8.8, AST is 285, ALT 252, alkaline phosphatase 563. The patient denies any current complaints. Reports that the weakness and the dysarthria from earlier today have resolved. She will be admitted to Oncology for further management. Decadron 10 mg was given in the emergency room. PAST MEDICAL HISTORY: Hypertension, dyslipidemia, metastatic breast cancer. PAST SURGICAL HISTORY: Bilateral mastectomies, hernia repair, bilateral cataract surgeries, MediPort placement, cardiac cath with stent placement. SOCIAL HISTORY: Denies tobacco use, alcohol use, recreational drug use. FAMILY HISTORY: Hypertension in both parents. CODE STATUS: Full code. Reports her son Freedom is her surrogate decision maker. ALLERGIES: SULFA, TRIMETHOPRIM, STATINS. HOME MEDICATIONS: 1. Multivitamin one tablet p.o. b.i.d. 2. Coenzyme Q 100 mg p.o. daily. 3. Aspirin 325 mg p.o. daily. 4. Coreg 3.125 mg p.o. b.i.d. 5. Repatha 140 mg subcu q.14. 6. Zetia 10 mg p.o. daily. 7. Nitrostat 0.4 mg SL q.5 minutes as needed for chest pain. REVIEW OF SYSTEMS: Historian reports pigmentation changes to her skin and sclerae of the eyes. Reports gait changes. Reports left upper and lower weakness. Family does report that her gait has changed in the last week or so. Reports that she sometimes when she gets going will lift to the left. All others review of systems are negative unless mentioned in the HPI. PHYSICAL EXAMINATION: GENERAL: The patient appears nontoxic, is alert and oriented to person, place, and time, is in no apparent distress. HEENT: Head is atraumatic and normocephalic. Eyes, eyelids are normal to inspection. Pupils are equally round and reactive to light. Sclerae are yellow. NECK: Normal range of motion. Trachea is midline. RESPIRATORY/CHEST: Chest movement is symmetrical. Chest expansion is equal. CARDIOVASCULAR: Heart rate is regular rate and rhythm. Heart sounds are normal. ABDOMEN: Nontender. Bowel sounds are heard. BACK: Normal inspection, normal range of motion, no tenderness. EXTREMITIES: Upper extremities; inspection normal, normal range of motion. Lower extremities; inspection is normal, normal range of motion, some mild left leg weakness. NEUROLOGIC: The patient is oriented to person, place, and time. Speech is normal. Left-sided past-pointed ataxia, very unstable gait, cannot stand on her own. SKIN: The patient has a yellow tint to her skin. LYMPHATICS: Normal. PSYCH: The patient is oriented to person, place, and time. Has a normal affect. IMAGING: EKG; interpretation in the emergency room shows sinus bradycardia, rate per minute 54, incomplete left bundle-branch block, LVH with repolarization abnormality. PERTINENT LABORATORY DATA: White blood cell count is 5.5, hemoglobin is 12.6, hematocrit is 40.3, and platelet count is 150. Sodium 137, potassium is 3.8, chloride is 106, gap is 15, BUN is 10, creatinine is 0.74, estimated GFR is 78, glucose is 92, bilirubin is 8.8, AST 285, ALT 252, alkaline phosphatase is 563. BNP is 294. ASSESSMENT: 1. Left-sided weakness, ataxia in the context of known breast cancer with liver and brain metastases. We will order an MRI without contrast in the morning to further characterize metastases versus infarct. PT, OT, speech evaluation have been ordered. The patient is already on aspirin. This will be restarted. Consult for Dr. Black has been ordered. 2. Elevated LFTs and jaundice, in the context of liver metastases with the PET scan in April showing a large liver tumor. We will order an ultrasound of the abdomen to characterize any particular obstructive process which could be causing the elevated LFTs, can consult GI as needed. 3. Coronary artery disease, hypertension. Restart home medications. 4. Case discussed with Dr. Coker who agrees to plan. 5. Further orders as needed by hospital course. Job ID: [id number]
[2019-05-04 04:49] LABS: #Lymphocytes 0.6 thou/uL (1.20-3.40); #Monocytes 0.2 thou/uL (0.11-0.59); #Neutrophils 4.7 thou/uL (1.40-6.50); %Basophils 0.4 % (0.0-1.0); %Eosinophils 0.1 % (0.0-10.0); %Lymphocytes 11.3 % (21.0-51.0); %Monocytes 3.1 % (0.0-10.0); Hemoglobin 12.8 g/dL (12.0-16.0); Mean Corpuscular Volume 93.9 fL (78.0-98.0); Mean Platelet Volume 11.7 fL (7.4-10.4); Platelet Count 160 thou/uL (130-400); RBC Distribution Width 15.8 % (11.5-14.5); Red Blood Cell (RBC) Count 4.13 mill/uL (4.20-5.40); White Blood Cell (WBC) Count 5.5 thou/uL (4.8-10.8)
[2019-05-04 05:07] LABS: ALT (SGPT) 222 U/L (8-55); AST (SGOT) 243 U/L (5-34); Albumin 3.5 g/dL (3.4-4.8); Alkaline Phosphatase 555 U/L (40-150); Anion Gap 13 mmol/L (10-20); BUN (Urea Nitrogen) 9 mg/dL (9.8-20.1); Bilirubin, Total 7.4 mg/dL (0.2-1.2); Calc. Creatinine Clearance 74 mL/min (70-130); Calcium 9.2 mg/dL (7.8-10.44); Carbon Dioxide 19 mmol/L (23-31); Chloride 105 mmol/L (98-107); Estimated GFR-MDRD 88; Globulin 3.8 g/dL (2.4-3.5); Glucose 167 mg/dL (80-115); Potassium 3.8 mmol/L (3.5-5.1); Protein, Total 7.3 g/dL (6.0-8.3); Sodium 133 mmol/L (136-145)
[2019-05-04] MEDS: Dexamethasone 4 mg/ml Vial SLOW IVP SCH ×3 (06:20→17:43)
[2019-05-04] MEDS ORDERED: Nitroglycerin 0.4 MG TAB (25 Tab Bottle) SL PRN (07:06)
[2019-05-04] MEDS ORDERED: Cepastat Lozenges 1 LOZ PO PRN (07:07)
[2019-05-04] MEDS ORDERED: Artificial Tear Sol 15 ML BOT EA EYE PRN (07:07)
[2019-05-04] MEDS ORDERED: Bisacodyl 5 MG TAB PO PRN (07:07)
[2019-05-04] MEDS ORDERED: Loperamide HCl 2 MG CAP PO PRN (07:07)
[2019-05-04] MEDS ORDERED: Ondansetron PF 4 MG/2 ML Vial IVP PRN (07:07)
[2019-05-04] MEDS ORDERED: Diabetic Tussin 200 MG/10 ML UDCUP PO PRN (07:07)
[2019-05-04] MEDS ORDERED: Loratadine 10 MG TAB PO PRN (07:07)
[2019-05-04] MEDS ORDERED: Sodium Chloride 0.65% Nasal 44 ML BOT EA NARE PRN (07:07)
[2019-05-04] MEDS ORDERED: Zolpidem Tartrate 5 MG TAB PO PRN (07:07)
[2019-05-04] MEDS ORDERED: Labetalol HCl 100 MG/20 ML VIAL SLOW IVP PRN (07:07)
[2019-05-04] MEDS ORDERED: hydrALAZINE 20 MG/ML VIAL SLOW IVP PRN (07:07)
--- NOTE | 2019-05-04 07:29 | ULT ---
COMPLETE ABDOMEN ULTRASOUND: Date: 05/04/19 INDICATION: History of jaundice with known liver metastatic disease from breast cancer. TECHNIQUE: Narvaez scale, color Doppler, and spectral Doppler images were obtained in the abdomen. FINDINGS: Visualized aspects of the abdominal aorta and IVC were within normal limits. The liver is enlarged, measuring 18.0 cm in greatest longitudinal dimension, and heterogeneous with i rregular echotexture to the liver parenchymal consistent with patient's known prominent hepatic metas tatic disease. This is better detailed on a PET CT evaluation dated 04/15/19. There is appropriate he patopetal flow within the main portal vein. There are small gallstones within a contracted gallbladder. No sonographic Aguilar's sign is reported. Common bile duct measures 4.5 mm. Visualized aspects of the pancreas are unremarkable appearing. Right kidney measures 10.6 x 4.0 x 4.1 cm. Left kidney measures 11.7 x 5.1 x 4.4 cm. No focal renal l esion or hydronephrosis is evident. IMPRESSION: 1. Diffuse hepatic metastatic disease. 2. Cholelithiasis without sonographic evidence of acute cholecystitis. POS: [facility]
[2019-05-04] MEDS: Famotidine 20 MG TAB PO SCH ×2 (09:37→21:43)
[2019-05-04] MEDS: Carvedilol 3.125 MG TAB PO SCH ×2 (09:37→17:43)
[2019-05-04] MEDS: Ezetimibe 10 MG TAB PO SCH (09:37)
[2019-05-04] MEDS: Multivit, Therapeutic 1 TAB PO SCH ×2 (09:37→21:43)
--- NOTE | 2019-05-04 10:45 | MRI ---
MRI OF BRAIN WITH AND WITHOUT CONTRAST: INDICATION: Left side weakness. History of brain metastases. COMPARISON: Reference is made to 04/13/2019 exam. FINDINGS: There is redemonstration of numerous supratentorial and infratentorial intraaxial metastases with ass ociated vasogenic edema and enhancement. Dominant lesion is located within the left cerebellar hemis phere, with a maximum, transverse dimension of 1.8 cm, which is grossly stable. There are numerous a dditional, redemonstrated intraaxial masses grossly stable in size and number to the April 13, 2019 ex am. Ventricular system is stable in size and morphology. No midline shift has developed. No interval acute territorial infarction or new, significant intracranial hemorrhage has developed. There is bilateral mastoid fluid, greater on the left. IMPRESSION: Redemonstration of diffuse supratentorial and infratentorial, intraaxial metastases. No new hemorrha ge, acute infarction, or midline shift. POS: [facility]
--- NOTE | 2019-05-04 12:56 | PDOC.PN ---
- Subjective Encounter Start Date: 05/04/19 Encounter Start Time: 11:00 Patient seen and examined. No new complaints. No overnight events - Objective Resuscitation Status - Order Detail: 05/03/19 18:33 Resuscitation Status Routine Co-Sign Provider: Resuscitation Status: FULL: Full Resuscitation Discussed with: patient and family Additional comments: Freedom, her son is her surrogate decision maker MAR Reviewed: Yes Vital Signs & Weight: Vital Signs (12 hours) Temp Pulse Pulse Pulse Resp BP BP 05/04/19 11:50 98.0 F 52 L 18 05/04/19 11:43 52 L 55 L 148/75 H 173/77 H 05/04/19 09:30 97.4 F L 56 L 18 05/04/19 08:00 05/04/19 04:39 97.9 F 76 16 BP Pulse Ox 05/04/19 11:50 148/75 H 98 05/04/19 11:43 05/04/19 09:30 161/71 H 99 05/04/19 08:00 99 05/04/19 04:39 141/67 H 98 Weight Weight 126 lb 4.8 oz I&O: 05/03/19 05/04/19 05/05/19 06:59 06:59 06:59 Intake Total 481 Output Total 300 Balance 181 Result Diagrams: 05/04/19 04:24 05/04/19 04:24 Radiology Reviewed by me: Yes Phys Exam - Physical Examination Constitutional: NAD HEENT: PERRLA, moist MMs, sclera anicteric Neck: no JVD, supple Respiratory: no wheezing, no rales, no rhonchi Cardiovascular: RRR, no significant murmur, no rub Gastrointestinal: soft, non-tender, no distention, positive bowel sounds Musculoskeletal: no edema, pulses present Neurological: non-focal, normal sensation Lymphatic: no nodes Psychiatric: normal affect, A&O x 3 Skin: no rash, normal turgor Dx/Plan (1) Abnormal LFTs Code(s): R94.5 - ABNORMAL RESULTS OF LIVER FUNCTION STUDIES Status: Acute Comment: due to liver mets (2) Jaundice Code(s): R17 - UNSPECIFIED JAUNDICE Status: Acute Comment: due to liver mets (3) Left-sided weakness Code(s): R53.1 - WEAKNESS Status: Acute Comment: due to left sided cerebellar mets (4) Breast carcinoma metastatic to multiple sites Code(s): C50.919 - MALIGNANT NEOPLASM OF UNSP SITE OF UNSPECIFIED FEMALE BREAST Status: Chronic Comment: brain and liver metastasis (5) CAD (coronary artery disease) Code(s): I25.10 - ATHSCL HEART DISEASE OF [place] CORONARY ARTERY W/O ANG PCTRS Status: Chronic Comment: with stent in LAD (6) Cholelithiases Code(s): K80.20 - CALCULUS OF GALLBLADDER W/O CHOLECYSTITIS W/O OBSTRUCTION Status: Chronic (7) Combined systolic and diastolic cardiac dysfunction Code(s): I51.89 - OTHER ILL-DEFINED HEART DISEASES Status: Chronic Comment: without CHF symptoms (8) Dyslipidemia Code(s): E78.5 - HYPERLIPIDEMIA, UNSPECIFIED Status: Chronic (9) Hypertension Code(s): I10 - ESSENTIAL (PRIMARY) HYPERTENSION Status: Chronic - Plan cont current plan of care, plan discussed w/ family * change to inpt status * medication reviewed as below * symptomatic treatment * continue decadron * oncology consulted * discussed with son. Review of Systems - Review of Systems ENT: negative: Ear Pain, Ear Discharge, Nose Pain, Nose Discharge, Nose Congestion, Mouth Pain, Mouth Swelling, Throat Pain, Throat Swelling, Other Respiratory: negative: Cough, Dry, Shortness of Breath, Hemoptysis, SOB with Excertion, Pleuritic Pain, Sputum, Wheezing Cardiovascular: negative: chest pain, palpitations, orthopnea, paroxysmal nocturnal dyspnea, edema, light headedness, other Gastrointestinal: negative: Nausea, Vomiting, Abdominal Pain, Diarrhea, Constipation, Melena, Hematochezia, Other Genitourinary: negative: Dysuria, Frequency, Incontinence, Hematuria, Retention , Other Musculoskeletal: negative: Neck Pain, Shoulder Pain, Arm Pain, Back Pain, Hand Pain, Leg Pain, Foot Pain, Other - Medications/Allergies Allergies/Adverse Reactions: Allergies Allergy/AdvReac Type Severity Reaction Status Date / Time Sulfa (Sulfonamide Allergy Hives Verified 05/03/19 20:25 Antibiotics) sulfamethoxazole Allergy hives and Verified 02/19/19 10:38 [From Bactrim] swelling trimethoprim Allergy hives, Verified 02/19/19 10:38 swelling Medications: Current Medications Acetaminophen (Tylenol) 650 mg PO Q4H PRN PRN Reason: Headache/Fever/Mild Pain (1-3) Hydrocodone Bitart/Acetaminophen ([place] 5/325) 1 tab PO Q4H PRN PRN Reason: Moderate Pain (4-6) Artificial Tears (Liquitears 15ml Bottle) 2 drop EA EYE PRN PRN PRN Reason: Dry Eyes Bisacodyl (Dulcolax) 10 mg PO DAILYPRN PRN PRN Reason: Constipation Carvedilol (Coreg) 3.125 mg PO BID-[facility] Last Admin: 05/04/19 09:37 Dose: 3.125 mg Dexamethasone (Decadron) 4 mg SLOW IVP Q6HR [facility] Last Admin: 05/04/19 12:10 Dose: 4 mg Ezetimibe (Zetia) 10 mg PO DAILY [facility] Last Admin: 05/04/19 09:37 Dose: 10 mg Famotidine (Pepcid) 20 mg PO BID [facility] Last Admin: 05/04/19 09:37 Dose: 20 mg Guaifenesin (Robitussin Sf) 200 mg PO Q4H PRN PRN Reason: Cough Hydralazine HCl (Apresoline) 10 mg SLOW IVP Q4H PRN PRN Reason: SBP > 180 and HR < 70 Labetalol HCl (Normodyne) 20 mg SLOW IVP Q4H PRN PRN Reason: SBP > 180 and HR >/= 70 Loperamide HCl (Imodium) 2 mg PO PRN PRN PRN Reason: Diarrhea/Loose Stools Loratadine (Claritin) 10 mg PO DAILYPRN PRN PRN Reason: Sinus Symptoms Multivitamins (Theragran) 1 tab PO BID [facility] Last Admin: 05/04/19 09:37 Dose: 1 tab Nitroglycerin (Nitrostat) 0.4 mg SL Q5MIN PRN PRN Reason: Chest Pain Ondansetron HCl (Zofran Odt) 4 mg PO Q6H PRN PRN Reason: Nausea/Vomiting Ondansetron HCl (Zofran) 4 mg IVP Q6H PRN PRN Reason: Nausea/Vomiting Pneumococcal 13-Valent Conj Vacc (Prevnar) 0.5 ml IM .ONCE ONE Stop: 05/04/19 21:01 Last Admin: 05/04/19 01:45 Dose: Not Given Senna/Docusate Sodium (Senokot S) 2 tab PO BID PRN PRN Reason: Constipation Sodium Chloride (Flush - Normal Saline) 10 ml IVF PRN PRN PRN Reason: Saline Flush Last Admin: 05/04/19 06:20 Dose: 10 ml Sodium Chloride (Flush - Normal Saline) 10 ml IVF Q12HR [facility] Last Admin: 05/04/19 09:37 Dose: 10 ml Sodium Chloride ([place] Nasal [place] 0.65%) 0 ml EA NARE QIDPRN PRN PRN Reason: Nasal Congestion Throat Lozenges (Cepastat Lozenges) 1 ho PO Q2H PRN PRN Reason: Sore Throat Zolpidem Tartrate (Ambien) 5 mg PO HSPRN PRN PRN Reason: Insomnia
[2019-05-04] MEDS ORDERED: Prevnar 13-Val Conj/PF 0.5 ML SYRINGE IM ONE (21:00)
--- NOTE | 2019-05-05 00:13 | CON ---
DATE OF CONSULTATION: 05/04/2019 REASON FOR CONSULTATION: Ms. Quevedo is a 68-year-old female known to me with a long history of metastatic breast cancer. I was asked to see her because of her brain metastasis. HISTORY OF PRESENT ILLNESS: Ms. Quevedo is well known to me. 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 She had brain and liver metastasis at the time of diagnosis in late 2016. She was started on chemotherapy and subsequently underwent radiosurgery to 4 metastatic lesions in the brain. She had an excellent response and then had bilateral mastectomies. However, in February 2018, she had numerous brain metastases and was treated with whole-brain radiation therapy. Since that time, she has been on and off chemotherapy because of progressive disease in the liver. More recently on MRI in April of 2019, she had progressive disease in the brain. She also had decreased ejection fraction and therefore, was not a candidate for Herceptin or other similar drugs. I saw her a couple of weeks ago to discuss whether to do a repeat course of whole-brain radiation therapy. At that time, she had disease in the liver and my discussions with Dr. Black indicated she had very little systemic options. The patient was deciding what she wanted to do when she was admitted to the hospital yesterday because of an event where she had some left-sided weakness and also some speech difficulties. These subsequently resolved on its own. Also, her family has noticed over the past several weeks she has become jaundiced and she is having more orange color to her urine. She has no headaches, nausea, or vomiting. She has no abdominal pain or other areas of pain. She was admitted to the hospital for further workup and evaluation. MRI of the brain did show numerous brain metastases with a small amount of vasogenic edema. There is no midline shift. Ultrasound of the liver showed diffusely enlarged liver with metastatic disease in the liver. There were gallstones, but no dilated common duct. Her bilirubin on admission was in the 8 range. Subsequently, I have been asked to see her to discuss her options for treatment at the present time. She does report that her speech and weakness difficulties have resolved. PAST MEDICAL HISTORY: 1. Breast cancer as mentioned above. 2. Hypertension. 3. Hypercholesterolemia. 4. Status post bilateral cataract surgery. 5. Status post right inguinal hernia repair. 6. Coronary artery disease, status post stent placement. MEDICATIONS: 1. Aspirin. 2. Coreg. 3. Decadron. 4. Pepcid. 5. Zofran p.r.n. 6. Multivitamin. ALLERGIES: SULFA DRUGS, WHICH CAUSED HIVES AND SWELLING. SOCIAL HISTORY: The patient lives near [place], [place] with her . She has no cigarette use. She drinks approximately 1-2 glasses of wine every several months. FAMILY HISTORY: Her paternal grandmother had breast cancer in her 70s, but from heart disease. There is no other family history of breast cancer or other malignancies. REVIEW OF SYSTEMS: A 12-system review of systems is otherwise negative. PHYSICAL EXAMINATION: VITAL SIGNS: Height 5 feet 5 inches, weight 126 pounds, blood pressure is 148/75, pulse is 52, respirations are 18, temperature is 98.0, O2 saturation is 98%. CONSTITUTIONAL: She is alert and oriented and in no apparent distress. She is well developed and well nourished. Karnofsky performance status is a 70%. HEENT: Eyes; pupils equal, round, react to light. Extraocular movements are intact. Sclerae are icteric. ENT; oral cavity and oropharynx revealed no lesion or erythema. Palate elevates symmetrically. [place] is intact. NECK: Supple without preauricular, submandibular, cervical, supraclavicular adenopathy. No thyromegaly. Larynx midline. LUNGS: Breathing nonlabored. Clear to auscultation and percussion. CARDIOVASCULAR: Heart, regular rate and rhythm without murmur. No lower extremity edema. BACK: No tenderness on fist percussion of her spine. LYMPHATIC: No axillary or inguinal adenopathy. ABDOMEN: Soft, nontender, nondistended without mass. Liver is mildly enlarged. SKIN: Yellow discoloration secondary to jaundice. No suspicious rash or lesion. NEUROLOGIC: Cranial nerves 2 through 12 grossly intact. Motor strength is 5/5 in both upper and lower extremities in all muscle groups tested. Reflexes are normal and symmetrical. Gait was not tested. LABORATORY DATA: CBC revealed a white blood count of 5500 with a hemoglobin of 12.8, hematocrit of 38.8, platelet count of 160,000. Chemistry group showed a bilirubin of 7.4. AST was 243, ALT was 222, alkaline phosphatase is 555. RADIOLOGIC DATA: MRI of the brain and ultrasound of the abdomen were personally reviewed. MRI shows numerous lesions consistent with brain metastases, most are small. There is a small amount of surrounding vasogenic edema. There is no midline shift. Ultrasound shows diffuse enlargement of the liver with metastatic disease. She does have gallstones. There is no dilatation of the common bile duct. ASSESSMENT: Ms. Quevedo is a 68-year-old female with stage IV metastatic breast cancer to the liver into the brain. She has had slowly progressive disease in the brain. She has also had progressive disease in the liver. PLAN: When I met with her 2 weeks ago, I did discuss a repeat course of whole-brain radiation therapy. However, her systemic disease has continued to grow and now has become a significant problem with her markedly elevated bilirubin from her disease in the liver. In my opinion, a repeat course of whole-brain radiation therapy only can offer benefit if her systemic disease is under reasonable control. Because she has progressive disease systemically and because she does not really have any further options systemically to treat this disease given her decreased ejection fraction and inability to have Herceptin, then I do not think a repeat course of whole-brain radiation therapy would benefit her. I think that her prognosis is going to be quite poor with likely a short survival. I do not think radiation therapy to the brain would impact this or even help in terms of quality of life. My recommendation would be that she undergo supportive care with hospice for end of life management. I would recommend that she take dexamethasone 4 mg b.i.d. to control the small amount of vasogenic edema in the brain and to hopefully keep her from having symptoms from her brain disease. She should also take Pepcid or pantoprazole while she is on the dexamethasone. If she does hospice care, then they can help her with her medications as well. Time was taken to answer all of her questions regarding her treatment options. She does have a good understanding of her situation and is agreeable with the recommendation and not doing any further radiation therapy. She will consider hospice care. Her son was also present at the bedside and time was taken to answer all his questions and he is agreeable with the recommendation as well. Thank you for asking me to see this consultation. Job ID: [id number]
[2019-05-05] MEDS: Dexamethasone 4 mg/ml Vial SLOW IVP SCH ×3 (00:37→11:58)
--- NOTE | 2019-05-05 01:15 | CON ---
DATE OF CONSULTATION: REASON FOR CONSULT: Metastatic breast cancer. HISTORY OF PRESENT ILLNESS: Ms. Quevedo is a pleasant 68-year-old female, who was diagnosed with locally advanced elective stage IV ductal carcinoma of the right breast in September of 2017. She was [id number], HER2 positive. She had brain and liver mets at the time of diagnosis. She underwent chemotherapy and radiosurgery for metastatic brain lesions. She had good response to chemotherapy and then underwent surgery with bilateral mastectomies. In December of 2018, she had progression and was placed on Xeloda. In February of 2019, she had a myocardial infarction with a drop in her ventricular ejection fraction and she had stents placed. She has not been on chemotherapy since that time. She had a recent MRI in April, which showed progressing brain lesions. She was seen by Dr. Sarmiento and discussed a repeat course of whole-brain radiation. On Friday morning, she had an incident where she had left-sided weakness. She presented to the emergency room for evaluation. She was noted to be jaundiced with a bilirubin is 7.4, an AST of 243 and ALT of 222. Her alkaline phosphatase was 585. These values were normal in February when last checked. She was started on steroids and her symptoms have improved. She does have mild weakness in her left upper extremities. She denies any chest pain. No shortness of breath. No abdominal discomfort. PAST MEDICAL HISTORY: 1. Stage IV invasive ductal carcinoma of the right breast, ER/AK negative, HER2 positive. 2. Brain, liver and bone lesions. 3. Hyperlipidemia. 4. Hypertension. PAST SURGICAL HISTORY: 1. Bilateral mastectomies. 2. Cataract surgery. 3. MediPort placement. 4. Cardiac cath with stent placement. ALLERGIES: SULFA. HOME MEDICATIONS: 1. Multivitamin daily. 2. CoQ10 daily. 3. Ecotrin 325 daily. 4. Coreg 3.125 mg b.i.d. 5. Repatha every 2 weeks. 6. Zetia 10 mg daily. 7. Nitrostat p.r.n. FAMILY HISTORY: No history of cancer. SOCIAL HISTORY: , has 1 child. Lives with her spouse. No alcohol, tobacco, or illicit drug use. REVIEW OF SYSTEMS: A 10-point review of systems is negative except for noted in HPI. PHYSICAL EXAMINATION: VITAL SIGNS: Temperature 98, pulse is 52, respiratory rate 18, BP is 148/75, she is 98% on room air. GENERAL: This is a well-developed, well-nourished, jaundiced female in no acute distress. HEENT: Normocephalic, atraumatic. Sclerae icteric. NECK: Supple. CARDIOVASCULAR: Regular rate and rhythm. LUNGS: Clear anterior. ABDOMEN: Soft and nontender. Bowel sounds are positive. EXTREMITIES: No clubbing, cyanosis, or edema. SKIN: No bahman. HEMATOLOGIC: No petechiae or purpura. NEUROLOGICAL: Nonfocal. PSYCHIATRIC: She is alert, oriented, and appropriate. PERTINENT LABS AND X-RAYS: WBCs are 5.5, hemoglobin 12.8, hematocrit 38.8, platelet count is 160,000. She has 85% neutrophils, 11% lymphocytes. Sodium is 133, potassium 3.8, chloride 105, CO2 is 19, BUN is 9, creatinine 0.67, calcium 9.2, bilirubin 7.4, AST is 243, ALT is 222, alkaline phosphatase is 555, serum total protein is 7.3, albumin 3.5, globulin 3.8. IMAGING: Brain MRI showed diffuse supratentorial and infratentorial metastasis. There is no new hemorrhage, infarction or midline shift. ASSESSMENT: 1. Metastatic breast cancer with recent progression of brain metastasis. 2. Progression of liver metastasis, now with elevated bilirubin and jaundice. 3. Possible transient ischemic attack secondary to brain metastasis. DISCUSSION: The patient has been started on steroids with improvement of symptoms. She had a recent PET scan, which showed intrahepatic disease. There was no blockage noted in her bile duct, so there is nothing that can be stented to improve her bilirubin. Dr. Sarmiento has offered patient repeat treatment for her brain lesions. We will ask him to come and see her to give his opinion. However, given the recent progression with a significant jaundice, it is unlikely that she is a candidate for any further treatment. We did discuss code status and she agrees that she does not want to be placed on life support. We will have palliative care followup this conversation. Thank you for the consult. We will follow along with her hospital course. Job ID: [id number]
[2019-05-05] MEDS ORDERED: Aspirin 325 MG TAB PO SCH (09:00)
[2019-05-05] MEDS: Carvedilol 3.125 MG TAB PO SCH (09:05)
[2019-05-05] MEDS: Famotidine 20 MG TAB PO SCH (09:05)
[2019-05-05] MEDS: Ezetimibe 10 MG TAB PO SCH (09:06)
[2019-05-05] MEDS: Multivit, Therapeutic 1 TAB PO SCH (09:06)
--- NOTE | 2019-05-05 10:39 | PDOC.PN ---
- Subjective Encounter Start Date: 05/05/19 Encounter Start Time: 07:00 Patient seen and examined. No new complaints. No overnight events - Objective Resuscitation Status - Order Detail: 05/03/19 18:33 Resuscitation Status Routine Co-Sign Provider: Resuscitation Status: FULL: Full Resuscitation Discussed with: patient and family Additional comments: [place], her son is her surrogate decision maker MAR Reviewed: Yes Vital Signs & Weight: Vital Signs (12 hours) Temp Pulse Resp BP Pulse Ox 05/05/19 07:06 97.9 F 60 18 149/66 H 98 Weight Admit Weight 126 lb 4.8 oz Weight 126 lb 4.8 oz I&O: 05/04/19 05/05/19 05/06/19 06:59 06:59 06:59 Intake Total 481 1000 Output Total 300 Balance 181 1000 Result Diagrams: 05/04/19 04:24 05/04/19 04:24 Phys Exam - Physical Examination Constitutional: NAD HEENT: moist MMs Neck: no JVD, supple Respiratory: no wheezing, no rales, no rhonchi Cardiovascular: RRR, no significant murmur, no rub Gastrointestinal: soft, non-tender, no distention, positive bowel sounds Musculoskeletal: no edema, pulses present Neurological: non-focal, normal sensation Psychiatric: normal affect, A&O x 3 Skin: no rash, normal turgor Dx/Plan (1) Abnormal LFTs Code(s): R94.5 - ABNORMAL RESULTS OF LIVER FUNCTION STUDIES Status: Acute Comment: due to liver mets (2) Jaundice Code(s): R17 - UNSPECIFIED JAUNDICE Status: Acute Comment: due to liver mets (3) Left-sided weakness Code(s): R53.1 - WEAKNESS Status: Acute Comment: due to left sided cerebellar mets (4) Breast carcinoma metastatic to multiple sites Code(s): C50.919 - MALIGNANT NEOPLASM OF UNSP SITE OF UNSPECIFIED FEMALE BREAST Status: Chronic Comment: brain and liver metastasis (5) CAD (coronary artery disease) Code(s): I25.10 - ATHSCL HEART DISEASE OF [place] CORONARY ARTERY W/O ANG PCTRS Status: Chronic Comment: with stent in LAD (6) Cholelithiases Code(s): K80.20 - CALCULUS OF GALLBLADDER W/O CHOLECYSTITIS W/O OBSTRUCTION Status: Chronic (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 Review of Systems - Review of Systems ENT: negative: Ear Pain, Ear Discharge, Nose Pain, Nose Discharge, Nose Congestion, Mouth Pain, Mouth Swelling, Throat Pain, Throat Swelling, Other Respiratory: negative: Cough, Dry, Shortness of Breath, Hemoptysis, SOB with Excertion, Pleuritic Pain, Sputum, Wheezing Cardiovascular: negative: chest pain, palpitations, orthopnea, paroxysmal nocturnal dyspnea, edema, light headedness, other Gastrointestinal: negative: Nausea, Vomiting, Abdominal Pain, Diarrhea, Constipation, Melena, Hematochezia, Other Genitourinary: negative: Dysuria, Frequency, Incontinence, Hematuria, Retention , Other Musculoskeletal: negative: Neck Pain, Shoulder Pain, Arm Pain, Back Pain, Hand Pain, Leg Pain, Foot Pain, Other - Medications/Allergies Allergies/Adverse Reactions: Allergies Allergy/AdvReac Type Severity Reaction Status Date / Time Sulfa (Sulfonamide Allergy Hives Verified 05/03/19 20:25 Antibiotics) sulfamethoxazole Allergy hives and Verified 02/19/19 10:38 [From Bactrim] swelling trimethoprim Allergy hives, Verified 02/19/19 10:38 swelling Medications: Current Medications Acetaminophen (Tylenol) 650 mg PO Q4H PRN PRN Reason: Headache/Fever/Mild Pain (1-3) Hydrocodone Bitart/Acetaminophen ([place] 5/325) 1 tab PO Q4H PRN PRN Reason: Moderate Pain (4-6) Artificial Tears (Liquitears 15ml Bottle) 2 drop EA EYE PRN PRN PRN Reason: Dry Eyes Aspirin (Aspirin) 325 mg PO DAILY [facility] Last Admin: 05/05/19 09:05 Dose: 325 mg Bisacodyl (Dulcolax) 10 mg PO DAILYPRN PRN PRN Reason: Constipation Carvedilol (Coreg) 3.125 mg PO BID[facility] Last Admin: 05/05/19 09:05 Dose: 3.125 mg Dexamethasone (Decadron) 4 mg SLOW IVP Q6HR [facility] Last Admin: 05/05/19 05:35 Dose: 4 mg Ezetimibe (Zetia) 10 mg PO DAILY [facility] Last Admin: 05/05/19 09:06 Dose: 10 mg Famotidine (Pepcid) 20 mg PO BID [facility] Last Admin: 05/05/19 09:05 Dose: 20 mg Guaifenesin (Robitussin Sf) 200 mg PO Q4H PRN PRN Reason: Cough Hydralazine HCl (Apresoline) 10 mg SLOW IVP Q4H PRN PRN Reason: SBP > 180 and HR < 70 Labetalol HCl (Normodyne) 20 mg SLOW IVP Q4H PRN PRN Reason: SBP > 180 and HR >/= 70 Loperamide HCl (Imodium) 2 mg PO PRN PRN PRN Reason: Diarrhea/Loose Stools Loratadine (Claritin) 10 mg PO DAILYPRN PRN PRN Reason: Sinus Symptoms Multivitamins (Theragran) 1 tab PO BID [facility] Last Admin: 05/05/19 09:06 Dose: 1 tab Nitroglycerin (Nitrostat) 0.4 mg SL Q5MIN PRN PRN Reason: Chest Pain Ondansetron HCl (Zofran Odt) 4 mg PO Q6H PRN PRN Reason: Nausea/Vomiting Ondansetron HCl (Zofran) 4 mg IVP Q6H PRN PRN Reason: Nausea/Vomiting Senna/Docusate Sodium (Senokot S) 2 tab PO BID PRN PRN Reason: Constipation Sodium Chloride (Flush - Normal Saline) 10 ml IVF PRN PRN PRN Reason: Saline Flush Last Admin: 05/05/19 05:35 Dose: 10 ml Sodium Chloride (Flush - Normal Saline) 10 ml IVF Q12HR [facility] Last Admin: 05/05/19 09:07 Dose: 10 ml Sodium Chloride ([place] Nasal [place] 0.65%) 0 ml EA NARE QIDPRN PRN PRN Reason: Nasal Congestion Throat Lozenges (Cepastat Lozenges) 1 ho PO Q2H PRN PRN Reason: Sore Throat Zolpidem Tartrate (Ambien) 5 mg PO HSPRN PRN PRN Reason: Insomnia Last Admin: 05/04/19 21:50 Dose: 5 mg
[2019-05-05 11:25] VITALS: BP 161/73; TEMP 97.5
--- NOTE | 2019-05-05 12:09 | DIS ---
DATE OF ADMISSION: 05/04/2019 DATE OF DISCHARGE: 05/05/2019 DISCHARGE DISPOSITION: Home with Home Hospice. PRIMARY DISCHARGE DIAGNOSES: 1. Left-sided weakness due to brain metastasis. 2. Obstructive jaundice and abnormal liver function study due to liver metastasis. SECONDARY DISCHARGE DIAGNOSES: Hypertension, dyslipidemia, combined systolic and diastolic dysfunction without heart failure, cholelithiasis, coronary artery disease, metastatic breast carcinoma. PRIMARY PROCEDURE/OPERATION: None. RADIOLOGICAL INVESTIGATION: MRI brain, abdomen ultrasound. SIGNIFICANT LABORATORY DATA: Hemoglobin 12.8, creatinine 0.67, AST 243, ALT 222, alkaline phosphatase 555. Urinalysis, bilirubin+. DISCHARGE MEDICATION: 1. Multivitamin one tablet p.o. b.i.d. 2. Coenzyme Q10 100 mg daily. 3. Nitroglycerin 0.4 mg sublingual p.r.n. 4. Aspirin 325 mg daily. 5. Coreg 3.125 mg b.i.d. 6. Repatha 140 mg subcu every two weeks. 7. Zetia 10 mg daily. 8. Pepcid 20 mg p.o. b.i.d. 9. Decadron 4 mg p.o. t.i.d. for 1 week, then b.i.d. for 1 week, and then daily. 10. Lisinopril 5 mg p.o. daily. CONTRAINDICATION: None. CODE STATUS: DNR, that was discussed on the day of discharge and [id number] DNR paperwork was done. DISCHARGE PLAN: Posthospital, the patient is discharged home with Home Hospice. HOSPITAL COURSE: A 68-year-old female, who has metastatic breast cancer. She has metastasis to brain and liver. This time, she was admitted by Radha Melendrez. Please see her H and P for further details. The patient was having left-sided upper and lower extremity weakness. MRI brain confirmed cerebellar metastasis. She also had abnormal LFT that was consistent with worsening of metastasis from breast cancer. This patient does not have any TIA. Her weakness on left side was related with metastasis. During this admission, Oncology and Radiation Oncology evaluated this patient, and finally after their discussion with prognosis, the patient decided to go home with Home Hospice. At this point, the patient will resume all her previous medication. We are prescribing tapering doses of Decadron. Once we have outpatient Hospice arranged, at that point, the patient will be stable for discharge. [id number] DNR paperwork was done. Job ID: [id number]
== END 2019-05-05 13:54 | disposition hospice, home (50) | DRG 55 ==
LOC: ERS 16:37 → ONC 19:32 → OBSVTOIN 05-04 07:12
PROVIDERS: ADMIT Internal Medicine; ATTEND Internal Medicine
DX: C79.31 Secondary malignant neoplasm of brain (principal); C78.7 Secondary malignant neoplasm of liver and intrahepatic bile duct; G81.94 Hemiplegia, unspecified affecting left nondominant side; C79.51 Secondary malignant neoplasm of bone; K80.21 Calculus of gallbladder without cholecystitis with obstruction; C50.911 Malignant neoplasm of unspecified site of right female breast; I10 Essential (primary) hypertension; E78.5 Hyperlipidemia, unspecified; R27.0 Ataxia, unspecified; I51.89 Other ill-defined heart diseases; I25.10 Atherosclerotic heart disease of native coronary artery without angina pectoris; Z95.5 Presence of coronary angioplasty implant and graft; Z88.2 Allergy status to sulfonamides; Z88.5 Allergy status to narcotic agent; Z79.82 Long term (current) use of aspirin; Z79.899 Other long term (current) drug therapy
CPT/HCPCS: 36415; 70553; 76700; 80053; 81003; 81015; 85025; 93005; 96374; J1100